=== PATIENT | female | born 1935 | race Caucasian/White ===

== ENCOUNTER → 2017-10-27 15:27 | Outpatient (CLI) | payer MEDICARE, SELFPAY ==
[2017-08-19 13:06] VITALS: BP 115/76; BMI 33.5
[2017-10-27 18:25] LABS: AST(SGOT) 18 U/L (15-37); Alanine Aminotransfer ALT/SGPT 21 U/L (13-56); Albumin, Serum 3.5 g/dL (3.2-5.0); Alkaline Phosphatase 67 U/L (45-117); Anion Gap 8 (5-15); BUN 15 mg/dL (7-18); BUN/Creat Ratio 14.3 RATIO (10-20); Calcium,Total 9.5 mg/dL (8.5-10.1); Chloride 99 mmol/L (98-107); Creatinine, Serum 1.05 mg/dL (0.55-1.02); EST Glomerular Filtration Rate 54 mL/min (>60); Est Glom Filt Rate - Afr Amer 65 mL/min (>60); Globulin 3.6 g/dL (2.2-4.2); Glucose 89 mg/dL (74-106); Potassium 3.8 mmol/L (3.5-5.1); Protein, Total 7.1 g/dL (6.4-8.2); Sodium Level 136 mmol/L (136-145); Thyroid Stim Hormone (TSH) 1.73 uIU/mL (0.358-3.74)
[2017-10-27 18:29] LABS: PTHIN 109.3 pg/mL (18.4-80.1)
== END ==
PROVIDERS: Family Provider Nurse Practitioner; PCP Nurse Practitioner; Visit Provider Internal Medicine Endocrinology, Diabetes & Metabolism
DX: C73 Malignant neoplasm of thyroid gland (principal); E21.0 Primary hyperparathyroidism; E31.22 Multiple endocrine neoplasia [MEN] type IIA
CPT/HCPCS: 36415; 80053; 82330; 83970; 84443

== ENCOUNTER → 2017-12-01 15:52 | Outpatient (CLI) | payer MEDICARE, SELFPAY ==
--- NOTE | 2017-12-01 16:14 | CT_ITS ---
STUDY: CT CHEST WITH CONTRAST REASON FOR EXAM: Female, 81 years old. Lymphoma and thyroid cancer. TECHNIQUE: Transaxial imaging was performed following intravenous administration of 75ML ml of Isovue 300 contrast material. Individualized dose optimization techniques were used for this CT. COMPARISON: Chest x-ray February 12, 2016. CT chest July 16, 2005. FINDINGS: The lungs are normal. There is no demonstrated pleural abnormality. Minimal linear fibrosis medial aspect of the left upper lobe which may be related to treatment therapy. The heart is not enlarged. Coronary artery calcifications. No pericardial effusion. Thyroid gland is absent compatible with surgical removal. There is a 0.9 cm focus of enhancement in the thyroid bed left lobe of the thyroid gland. 1.1 x 0.9 cm superior right paratracheal lymph node and more inferior right paratracheal lymph node measuring 1.7 x 1.5 cm, not significantly changed since the study of 2004. Normal hilar regions. Normal enhanced pulmonary arteries. Mild atherosclerotic calcification of the thoracic aorta. Degenerative changes of the thoracic spine. There is no demonstrated abnormality of the visualized upper abdomen. CT/Chest WITH Contrast IMPRESSION: No significant change in 2 mildly enlarged mediastinal lymph nodes. Small area of enhancement in the surgical bed left lobe of the thyroid gland could represent residual thyroid tissue or recurrence of tumor. Coronary artery calcifications. Electronically Signed: Ramón Lorenzana MD at 8:19 EDT , Service support ,
--- NOTE | 2017-12-01 16:14 | CT_ITS ---
STUDY: CT ABDOMEN AND PELVIS WITH CONTRAST REASON FOR EXAM: Female, 81 years old. Lymphoma. Weight loss. RADIATION DOSAGE (If Supplied By Facility): CTDIvol = ( 18.40 ) mGy, DLP = ( 1788.70 ) mGycm TECHNIQUE: Transaxial images were obtained from the dome of the diaphragm to the symphysis pubis without oral contrast. 75ML ml of Isovue 300 contrast was administered. Sagittal and coronal images were reconstructed. Individualized dose optimization techniques were used for this CT. COMPARISON: 07/07/2010. FINDINGS: There is significant streak artifact from improper positioning of patient arms. The visualized lung bases are unremarkable. The visualized portions of the heart are within normal limits. Liver is normal in shape and size. It appears mildly heterogeneous without focal mass. 2 or 3 scattered tiny cysts are seen.. There are surgical clips in the gallbladder fossa consistent with a prior cholecystectomy. Normal spleen. Normal pancreas. Normal bilateral adrenal glands. Normal right kidney. Normal left kidney. Evaluation of the GI tract is limited by absence of oral contrast. Cannot exclude stomach wall thickening. No dilated loops of bowel or evidence for obstruction. Cannot exclude segmental thickening of the enamorado of the small or large bowel. Cannot exclude enteritis or colitis. Moderate diffuse fecal retention. Diverticulosis without definite diverticulitis. Appendix has been removed Normal abdominal aorta. Normal inferior vena cava. There is borderline retroperitoneal lymphadenopathy with enlarged nodes no greater than 10mm in the short axis diameter. Normal urinary bladder. There is atrophy of the uterus. Small ventral hernia containing fat. There are diffuse degenerative changes of the visualized lumbar spine. CT/Abdomen/Pelvis WITH Contrast IMPRESSION: Limited by streak artifact. No definite acute abnormality. Electronically Signed: Jaden Rondon MD at 8:44 EDT , Service support ,
--- NOTE | 2017-12-01 16:15 | CT_ITS ---
STUDY: CT SOFT TISSUE NECK WITH CONTRAST REASON FOR EXAM: Female, 81 years old. Lymphoma and thyroid cancer. RADIATION DOSAGE (If Supplied By Facility): CTDIvol = ( 13.94 ) mGy, DLP = ( 377.71 ) mGycm TECHNIQUE: The patient was scanned in a multi-detector CT scanner. High resolution transaxial imaging was performed following intravenous administration of 75ml ml of Isovue 300 contrast material. Sagittal and coronal images were reconstructed. Individualized dose optimization techniques were used for this CT. COMPARISON: CT chest July 16, 2005. FINDINGS: Normal bilateral parotid glands. Normal bilateral pipe joints supervisor spaces. Normal bilateral parapharyngeal spaces. Normal bilateral carotid spaces. Normal bilateral sublingual and submandibular glands and spaces. Normal visualized nasopharynx. Normal retropharyngeal space. Normal perivertebral space. Normal visualized bilateral faucial tonsils. The visualized tongue, tongue base and oropharynx are normal. Mildly enlarged mediastinal lymph node superior right paratracheal measuring 1.2 x 0.9 cm. There is no demonstrated solid or cystic mass lesion. There is no abnormal contrast enhancement. Normal epiglottis, bilateral vallecula and hypopharynx. The pre-epiglottic and paraglottic adipose spaces are normal. Normal visualized bilateral piriform sinuses, aryepiglottic folds, vocal cords, and arytenoid-cricoid articulations. Normal subglottic trachea. The thyroid gland is not visualized suggestive of surgical removal. There is a 1.0 x 0.8 cm focus of enhancement in the surgical bed left lobe of the thyroid gland axial image 31 series 1002 and coronal image 32 series 601. Normal visualized pulmonary apices. Mild atherosclerotic calcification of the carotid arteries without hemodynamically significant stenosis. Normal visualized paranasal sinuses. Mild anterolisthesis C4 on C5. Disc space narrowing C4-5, C5-6 and C6-7. Neural foramina narrowing on the left at C4-5, C5-6 and C6-7. CT/Soft Tissue Neck WITH Contrast IMPRESSION: 1 cm focus of enhancement surgical bed left lobe of the thyroid gland, which could represent residual thyroid tissue or recurrence of tumor. Minimally enlarged mediastinal lymph node. Multilevel degenerative changes of the cervical spine with left-sided neural foramina narrowing of the lower cervical spine. Electronically Signed: Ramón Lorenzana MD at 8:07 EDT , Service support ,
[2017-12-01 17:20] LABS: CREATININE FINGERSTICK 0.9 mg/dL (0.55-1.02)
== END ==
PROVIDERS: Family Provider Nurse Practitioner; PCP Nurse Practitioner; Visit Provider Internal Medicine Hematology & Oncology
DX: C73 Malignant neoplasm of thyroid gland (principal); R63.4 Abnormal weight loss; C83.30 Diffuse large B-cell lymphoma, unspecified site
CPT/HCPCS: 70491; 71260; 74177; Q9967

== ENCOUNTER → 2017-12-25 08:29 | Outpatient (CLI) | payer MEDICARE, SELFPAY ==
--- NOTE | 2017-12-25 08:31 | US_ITS ---
STUDY: THYROID ULTRASOUND REASON FOR EXAM: Female, 82 years old. Follow-up nodule on CT TECHNIQUE: Ultrasound evaluation of the thyroid was performed with real-time and static josue-scale imaging. COMPARISON: CT neck dated December 01, 2017 FINDINGS: RIGHT LOBE: Status post right thyroidectomy LEFT LOBE: The left lobe of the thyroid gland measures 3.8 x 1.1 x 1.1 cm. There is a heterogeneous echotexture. At least 4 nodules are identified, solid and well-defined. Largest in the midpole measuring 6 x 5 x 6 mm with dystrophic calcification. ISTHMUS: The isthmus measures 2 mm. The regional lymph nodes are normal. US/Thyroid IMPRESSION: Status post right thyroidectomy. Multiple small left thyroid nodules. Electronically Signed: Juliano Grijalva DO at 8:40 EDT Tel , Service support ,
== END ==
PROVIDERS: Family Provider Nurse Practitioner; PCP Nurse Practitioner; Visit Provider Internal Medicine Hematology & Oncology
DX: C73 Malignant neoplasm of thyroid gland (principal)
CPT/HCPCS: 76536

== ENCOUNTER → 2018-06-01 10:18 | Outpatient (CLI) | payer MEDICARE, SELFPAY ==
[2018-06-01 13:00] LABS: Vitamin D,25 Hydroxy 15.6 ng/mL (29.95-100.01)
[2018-06-01 13:01] LABS: PTHIN 119.1 pg/mL (18.4-80.1)
[2018-06-01 13:26] LABS: AST(SGOT) 20 U/L (15-37); Alanine Aminotransfer ALT/SGPT 18 U/L (13-56); Albumin, Serum 3.5 g/dL (3.2-5.0); Alkaline Phosphatase 74 U/L (45-117); Anion Gap 10 (5-15); BUN 14 mg/dL (7-18); BUN/Creat Ratio 12.3 RATIO (10-20); Calcium,Total 9.4 mg/dL (8.5-10.1); Chloride 101 mmol/L (98-107); Creatinine, Serum 1.14 mg/dL (0.55-1.02); EST Glomerular Filtration Rate 49 mL/min (>60); Est Glom Filt Rate - Afr Amer 59 mL/min (>60); Globulin 3.6 g/dL (2.2-4.2); Glucose 87 mg/dL (74-106); Potassium 3.8 mmol/L (3.5-5.1); Protein, Total 7.1 g/dL (6.4-8.2); Sodium Level 137 mmol/L (136-145); T4 Free Direct 1.17 ng/dL (0.76-1.46); Thyroid Stim Hormone (TSH) 0.73 uIU/mL (0.358-3.74)
== END ==
PROVIDERS: Family Provider Nurse Practitioner; PCP Nurse Practitioner; Visit Provider Internal Medicine Endocrinology, Diabetes & Metabolism
DX: C73 Malignant neoplasm of thyroid gland (principal); E21.0 Primary hyperparathyroidism; E89.0 Postprocedural hypothyroidism; E55.9 Vitamin D deficiency, unspecified; E31.22 Multiple endocrine neoplasia [MEN] type IIA
CPT/HCPCS: 36415; 80053; 82306; 82330; 83970; 84439; 84443

== ENCOUNTER 2018-07-28 08:12 | Emergency (ER) | payer MEDICARE, SELFPAY ==
[2018-07-28 08:14] VITALS: BP 129/90; PULSE 92; RESP 16; TEMP 36.9; O2SAT 97; BMI 34.3
--- NOTE | 2018-07-28 08:44 | ED.VISSUMM ---
- ER Visit Summary Date of Service: 07/28/18 Chief Complaint: Fell History of Present Illness: The patient is a 82 F who fell yesterday evening in the shower. She slipped. She did not lose consciousness. She is denying head or neck pain. Denies any blood thinner use. She complains of pain to her mid and lower back as well as her hips bilaterally. Denies any HEENT symptoms or trauma. Denies neck pain. Denies chest pain, shortness of breath. Denies abdominal pain or GI symptoms. Denies weakness or numbness. Physical Examination: Afebrile and vital signs unremarkable. Patient is alert and oriented. No acute distress. Head and neck are atraumatic. Neck is nontender. Heart regular. Lungs clear. Abdomen soft. Back is tender to palpation diffusely in the thoracic and lumbar spines. Inspection is normal. Hips tender to palpation over her greater trochanters. Negative logroll. Good range of motion. Neurovascular intact distally. Equal strength. Arms atraumatic. Cranial nerves grossly intact. Test Results: X-rays of the thoracic and lumbar spines are pending. X-rays of the bilateral hips and pelvis are pending. Emergency Department Course and Treatment: Patient treated with [facility] while awaiting results. X-rays were all unremarkable. Degenerative changes only. Patient was able to ambulate without difficulty. She has pain medication at home and will be discharged. Treatment Plan: As above Disposition: Discharged Impression: 1. Lumbar back pain This note was generated with [employer] dictation software. It may contain incorrect words, spelling, and punctuation that were not noted in review of the chart prior to signing ED Disposition - Plan for ED Patient: Chief Complaint: Fall Referrals: Jenna Najera, [facility]-C [Primary Care Provider] -
--- NOTE | 2018-07-28 09:09 | RAD_ITS ---
STUDY: X-RAY - PELVIS AND BILATERAL HIPS REASON FOR EXAM: Female, 82 years old. Pain following a fall. TECHNIQUE: Radiological exam, hip, bilateral, with pelvis when performed; minimum of 5 views COMPARISON: None. FINDINGS: There is a non-specific bowel gas pattern. Normal visualized soft tissue structures. Normal bilateral iliac wings, sacroiliac joints and visualized sacrum. Normal bilateral superior and inferior pubic rami. There are degenerative changes of the pubic symphysis with articular narrowing and sclerosis. Normal bilateral ischial tuberosities. Normal visualized right femoral head. Normal right acetabulum. Normal right hip joint. Normal visualized left femoral head. Normal left acetabulum. Normal left hip joint. RAD/Hips B/L min 2 views w/ Pelvis IMPRESSION: Normal x-ray examination of the pelvis and bilateral hips. Electronically Signed: Scott Mims MD at 9:58 EST Tel [phone], Service support ,
--- NOTE | 2018-07-28 09:19 | RAD_ITS ---
STUDY: X-RAY - LUMBAR SPINE REASON FOR EXAM: Female, 82 years old. Low back pain following a fall. TECHNIQUE: 3 view(s) of the lumbar spine were obtained. COMPARISON: None FINDINGS: Normal lumbar lordosis. There is a mild dextroscoliosis of the lumbar spine. There is a grade 1 anterior listhesis of L5 on S1 without spondylolysis. There is multilevel endplate spondylosis of the lumbar vertebrae. There is multi-level degenerative disc disease with multi-level disc space narrowing. There is atherosclerotic calcification of the abdominal aorta without a demonstrated aneurysm. RAD/Lumbar Spine 2 or 3 Views IMPRESSION: Degenerative changes of the spine, as detailed above. Mild dextroscoliosis. Electronically Signed: Scott Mims MD at 10:00 EST Tel [phone], Service support ,
--- NOTE | 2018-07-28 09:29 | RAD_ITS ---
STUDY: X-RAY - THORACIC SPINE REASON FOR EXAM: Female, 82 years old. Pain following a fall. TECHNIQUE: 3 view(s) of the thoracic spine were obtained. COMPARISON: None. FINDINGS: There is an increase in the normal thoracic kyphosis. Mild levoscoliosis. There is demineralization of the thoracic spine with endplate spondylosis. There is multilevel disc space narrowing of the thoracic spine. Atherosclerotic calcification of the aortic arch. RAD/Thoracic Spine 3 Views IMPRESSION: Mild levoscoliosis and increased kyphosis. Multilevel degenerative changes. Electronically Signed: Scott Mims MD at 9:59 EST Tel [phone], Service support ,
[2018-07-28] MEDS: HYDROcodone Bitartrate/Apap 5/325 Tablet PO (09:52)
[2018-07-28 10:16] VITALS: O2SAT 98
--- NOTE | 2018-07-28 11:25 | ED.DEP ---
ED Disposition - Plan for ED Patient: Chief Complaint: Fall Instructions: ED Mechanical Fall Referrals: Jenna Najera NP-C [Primary Care Provider] -
[2018-07-28 11:31] VITALS: BP 137/88; PULSE 71; RESP 16; O2SAT 96
== END 2018-07-28 11:32 | disposition home or self-care (01) ==
LOC: ED 08:50
PROVIDERS: Emergency Provider Emergency Medicine; Family Provider Nurse Practitioner; PCP Nurse Practitioner
DX: M54.5 Low back pain (principal); Z85.850 Personal history of malignant neoplasm of thyroid
CPT/HCPCS: 72072; 72100; 73521; 99283

== ENCOUNTER → 2019-03-04 | Outpatient (CLI) | payer MEDICARE, SELFPAY ==
[2019-03-04 12:58] LABS: Anion Gap 3 (5-15); BUN 13 mg/dL (7-18); BUN/Creat Ratio 13.1 RATIO (10-20); Calcium,Total 9.6 mg/dL (8.5-10.1); Chloride 107 mmol/L (98-107); Creatinine, Serum 0.99 mg/dL (0.55-1.02); EST Glomerular Filtration Rate 57 mL/min (>60); Est Glom Filt Rate - Afr Amer 69 mL/min (>60); Glucose 78 mg/dL (74-106); Potassium 4.1 mmol/L (3.5-5.1); Sodium Level 137 mmol/L (136-145); T4 Free Direct 1.04 ng/dL (0.76-1.46); Thyroid Stim Hormone (TSH) 1.39 uIU/mL (0.358-3.74)
[2019-03-04 15:03] LABS: PTHIN 184.2 pg/mL (18.4-80.1)
== END | disposition home or self-care (01) ==
LOC: MTLAB 09:33
PROVIDERS: Family Provider Nurse Practitioner; PCP Nurse Practitioner; Referring Provider Internal Medicine Endocrinology, Diabetes & Metabolism; Visit Provider Internal Medicine Endocrinology, Diabetes & Metabolism
DX: E89.0 Postprocedural hypothyroidism (principal); E21.0 Primary hyperparathyroidism
CPT/HCPCS: 36415; 80048; 82330; 83970; 84439; 84443

== ENCOUNTER → 2019-03-18 | Outpatient (CLI) | payer MEDICARE, SELFPAY ==
--- NOTE | 2019-03-18 13:04 | US_ITS ---
HISTORY: THYROID CA EXAMINATION: US Thyroid (eg thyroid, parathyroid, parotid) TECHNIQUE: Baker scale and color doppler imaging was performed of the thyroid gland. COMPARISON: Previous thyroid ultrasound from December 25, 2017.. CT scan of the chest that images through the thyroid gland is from December 01, 2017. Additional thyroid ultrasound dated June 24, 2016 FINDINGS: The right lobe of the thyroid gland has been resected. No masses or adenopathy within the right neck is perceived. LEFT THYROID LOBE: Measures 1.2 x 4.6 x 1.4 cm. This is measured larger than the most recent ultrasound, where it measured 1.1 x 3.8 x 1.1 cm. Direct comparison of the images where the measurements were made are fairly similar except for the length. The craniocaudal dimension of the left lobe of the thyroid gland is more similar than these 2 different measurements suggest. The left lobe of the thyroid gland remains heterogeneous. There remain several nodules within the left lobe of the thyroid gland. Color Doppler imaging of the left lobe of thyroid gland demonstrates adequate if not hyper vascularity. Within the dorsal aspect of the midportion of the left lobe of the thyroid gland there is an echogenic non-shadowing nodule with well-defined margins measuring 5 x 5 mm. Directly inferior to it, abutting it, is a second echogenic non-shadowing well-defined nodule measuring 4 x 5 mm. Both of these nodules are homogeneous in echotexture. The more cranial nodule does not demonstrate flow on color Doppler imaging. There does appear to be some flow within the more inferior of these 2 adjacent nodules. These nodules are very similar in appearance compared to the previous study in terms of size, position, margin definition, echogenicity, and vascularity to the more inferior lesion. Within the anterior aspect of the midportion of the left lobe of the thyroid gland, directly adjacent to the left common carotid artery, there is a well-defined anechoic cystic structure. On the sagittal series, I measure it to be 4 x 3 mm. Although this is minimally larger than the previous study, some of this could be cursor placement and the slice on which I measured it compared to the previous study. It remains consistent with a simple cyst. It is the same in appearance as the previous study. The complex lesion measured is a fourth lesion within the left lobe of the thyroid gland, at the end of the previous study, was not perceived by the automotive welder. I it to be on images 19 and 20 of 38. The continues to be heterogeneous with some shadowing with tiny foci of echogenic material. The rim of hypo-echoic tissue at its margin better seen on the previous study is not well-defined on the current study. On today's study, on those sagittal images, I measure it at 7 x 5 mm. This is also similar to the previous study accounting for differences in slices and cursor placement. ISTHMUS: Is thin and similar to the previous study. No thyroid nodules are present. US/Thyroid IMPRESSION: 4 lesions within the left lobe of the thyroid gland. One of these is cystic benign and unchanged. 2 are homogeneous with increased echotexture and well-defined margins and unchanged. The third is heterogeneous possibly with some calcifications and with a rind of hypoechoic tissue at some of its margins. This fourth lesion is the most suspicious lesion. It does not demonstrate a significant increase in size since the previous study of December 25, 2017, 14 months earlier. Absence of growth suggests, but is not definitive for absence of neoplasia. Comparison to the June 24, 2016 study demonstrates the 2 well-defined homogeneous echogenic lesions are very similar. The cyst may have been present at that time but is slightly different in appearance. The lesion in my report that is the fourth lesion is smaller than the June 24, 2016 study.. at 2527 Reported and signed by: Vicente Crews MD Electronically Signed: Vicente Crews MD at 21:57 EDT Tel , Service support ,
== END | disposition home or self-care (01) ==
LOC: US 13:00
PROVIDERS: Family Provider Nurse Practitioner; PCP Nurse Practitioner; Referring Provider Internal Medicine Endocrinology, Diabetes & Metabolism; Visit Provider Internal Medicine Endocrinology, Diabetes & Metabolism
DX: C73 Malignant neoplasm of thyroid gland (principal)
CPT/HCPCS: 76536

== ENCOUNTER 2019-06-28 17:15 | Emergency (ER) | payer MEDICARE, SELFPAY ==
[2019-06-02 13:30] VITALS: BMI 30.4
[2019-06-28 17:19] VITALS: BP 161/93; PULSE 98; RESP 16; TEMP 36.7; O2SAT 98; BMI 32.2
--- NOTE | 2019-06-28 17:31 | CT_ITS ---
STUDY: CT BRAIN WITHOUT CONTRAST REASON FOR EXAM: Female, 83 years old. Trauma RADIATION DOSAGE (If Supplied By Facility): CTDIvol = ( ) mGy, DLP = ( 829.85 ) mGycm TECHNIQUE: Transaxial CT imaging of the brain was performed without administration of intravenous contrast material. Individualized dose optimization techniques were used for this CT. COMPARISON: No relevant priors. FINDINGS: There is soft tissue injury of the posterior right parietal scalp. Normal calvarium. There is mild cerebral atrophy with widening of the extra-axial spaces and ventricular dilatation. There are areas of decreased attenuation within the white matter tracts of the supratentorial brain, consistent with microvascular disease changes. Normal basal ganglia and thalami. Normal brainstem. Normal cerebellum. There is no intracranial hemorrhage. There are no findings of an acute ischemic infarction. Normal visualized paranasal sinuses. CT/Brain/Head without Contrast IMPRESSION: Chronic involutional changes of the brain. Electronically Signed: Kavon Tom MD at 18:16 EDT , Service support ,
[2019-06-28] MEDS: Diphth,Pertuss(Acell),Tet Vac 0.5 ML Vial IM (18:04)
--- NOTE | 2019-06-28 18:58 | ED.VISSUMM ---
- ER Visit Summary Date of Service: 06/28/19 Chief Complaint: [Fall with head injury and laceration scalp] History of Present Illness: The patient is a 83 F [presents to the emergency department after sustaining a fall today. Patient states that she was up on a step stool when she missed a step and fell backward striking her head on a bed post. No loss of consciousness. She denies any neck pain. She is been ambulatory since. She is not on any blood thinners. Patient does have a history of GERD, hypertension, high cholesterol, chronic kidney disease, non-Hodgkin's lymphoma. She is unsure of her last tetanus shot. Denies any neck pain or paresthesias in the extremities. She denies any chest pain or abdominal pain.] Physical Examination: [HEENT-PERRLA, EOMI. Cranial nerves II through XII grossly intact. TMs clear. Mucous membranes moist. No adenopathy. Patient has a complex laceration to the right posterior occiput measuring approximately 5 cm in total length. No bony step-offs noted. C-spine tenderness to palpation. She has normal active range of motion is painless. Cardiovascular-regular rate and rhythm without murmur or ectopy Lungs-clear to auscultation, chest wall stable without crepitus or subcu emphysema Abdomen-normoactive bowel sounds, soft, nontender, no rebound or rigidity, no peritoneal signs. Extremities-intact ?4, normal range of motion, normal pulses, atraumatic] Test Results: [T scan of the brain without contrast showed chronic involutional changes] Emergency Department Course and Treatment: [Recent repair-wound sterilely draped and prepped. Wound cleansed with Shur-Clens and irrigated with copious saline. Wound anesthetized locally with 1% lidocaine with epinephrine total of 6 cc. Using 4-0 nylon a total of 8 single interrupted sutures placed with good wound edge approximation. Patient tolerated procedure well.] Treatment Plan: [Up with primary care physician in 10 days for suture removal.] Disposition: [Discharged home in stable condition.] Impression: [Chemical fall Closed head injury Scalp laceration 5 cm-simple repair] This note was generated with [employer] software. It may contain incorrect words, spelling, and punctuation that were not noted in review of the chart prior to signing ED Disposition - Plan for ED Patient: Referrals: Jenna Najera, APPLICATIONS ENGINEER MANUFACTURING-C [Primary Care Provider] -
--- NOTE | 2019-06-28 19:00 | DCINST.ED_ITS ---
ED Disposition - Plan for ED Patient: Instructions: FALL, Mechanical, HEAD INJURY, No Wake-Up (Adult), LACERATION, Scalp Referrals: Jenna Najera, ANTISQUEAK WORKER-C [Primary Care Provider] - 10 Day for suture removal
--- NOTE | 2019-06-28 19:00 | ED.DEP ---
ED Disposition - Plan for ED Patient: Instructions: FALL, Mechanical, HEAD INJURY, No Wake-Up (Adult), LACERATION, Scalp Referrals: Jenna Najera, WILDLIFE BIOSTATION RESEARCH ECOLOGIST-C [Primary Care Provider] - 10 Day for suture removal
== END 2019-06-28 19:35 | disposition home or self-care (01) ==
PROVIDERS: Emergency Provider Emergency Medicine; Family Provider Nurse Practitioner; PCP Nurse Practitioner
DX: S01.01XA Laceration without foreign body of scalp, initial encounter (principal); Z85.72 Personal history of non-Hodgkin lymphomas; E78.00 Pure hypercholesterolemia, unspecified; I12.9 Hypertensive chronic kidney disease with stage 1 through stage 4 chronic kidney disease, or unspecified chronic kidney disease; N18.9 Chronic kidney disease, unspecified; K21.9 Gastro-esophageal reflux disease without esophagitis; Z79.899 Other long term (current) drug therapy; W11.XXXA Fall on and from ladder, initial encounter; Y93.89 Activity, other specified; Y92.092 Bedroom in other non-institutional residence as the place of occurrence of the external cause; Y99.8 Other external cause status
CPT/HCPCS: 12002; 70450; 90715; 99282

== ENCOUNTER → 2019-09-30 11:00 | Outpatient (CLI) | payer MEDICARE, SELFPAY ==
[2019-09-30 12:36] LABS: ALB/GLOB Ratio 0.9 RATIO (0.9-2.4); AST(SGOT) 14 U/L (15-37); Alanine Aminotransfer ALT/SGPT 14 U/L (13-56); Albumin, Serum 3.3 g/dL (3.2-5.0); Alkaline Phosphatase 66 U/L (45-117); Anion Gap 5 (5-15); BUN 13 mg/dL (7-18); BUN/Creat Ratio 11.6 RATIO (10-20); Calcium,Total 9.4 mg/dL (8.5-10.1); Chloride 108 mmol/L (98-107); Creatinine, Serum 1.12 mg/dL (0.55-1.02); EST Glomerular Filtration Rate 49 mL/min (>60); Est Glom Filt Rate - Afr Amer 60 mL/min (>60); Globulin 3.5 g/dL (2.2-4.2); Glucose 92 mg/dL (74-106); Potassium 3.8 mmol/L (3.5-5.1); Protein, Total 6.8 g/dL (6.4-8.2); Sodium Level 140 mmol/L (136-145)
[2019-09-30 12:43] LABS: Vitamin D,25 Hydroxy 22.8 ng/mL (29.95-100.01)
[2019-10-03 14:54] LABS: Thyroglobulin Antibody < 1.0 IU/mL (0.0-0.9); Thyroid Peroxidase AB 7 IU/mL (0-34)
== END ==
PROVIDERS: Family Provider Nurse Practitioner; PCP Nurse Practitioner; Referring Provider Internal Medicine Endocrinology, Diabetes & Metabolism; Visit Provider Internal Medicine Endocrinology, Diabetes & Metabolism
DX: E21.0 Primary hyperparathyroidism (principal); C73 Malignant neoplasm of thyroid gland
CPT/HCPCS: 36415; 80053; 82306; 86376; 86800

== ENCOUNTER → 2019-10-08 11:03 | Outpatient (CLI) | payer MEDICARE, SELFPAY ==
[2019-10-08 14:01] LABS: T4 Total, Thyroxin 10.3 ug/dL (4.8-13.9); Thyroid Stim Hormone (TSH) 3.55 uIU/mL (0.358-3.74)
== END ==
PROVIDERS: PCP Nurse Practitioner; Referring Provider Internal Medicine Endocrinology, Diabetes & Metabolism; Visit Provider Internal Medicine Endocrinology, Diabetes & Metabolism
DX: C73 Malignant neoplasm of thyroid gland (principal)
CPT/HCPCS: 36415; 84436; 84443

== ENCOUNTER → 2020-05-23 08:52 | Outpatient (CLI) | payer MEDICARE, MEDICAID, SELFPAY ==
[2020-01-24 13:09] VITALS: BMI 29.8
[2020-05-23 10:53] LABS: ALB/GLOB Ratio 0.9 RATIO (0.9-2.4); AST(SGOT) 11 U/L (15-37); Alanine Aminotransfer ALT/SGPT 15 U/L (13-56); Albumin, Serum 3.2 g/dL (3.2-5.0); Alkaline Phosphatase 64 U/L (45-117); Anion Gap 3 (5-15); BUN 17 mg/dL (7-18); BUN/Creat Ratio 16.3 RATIO (10-20); Calcium,Total 9.1 mg/dL (8.5-10.1); Chloride 107 mmol/L (98-107); Creatinine, Serum 1.04 mg/dL (0.55-1.02); EST Glomerular Filtration Rate 54 mL/min (>60); Est Glom Filt Rate - Afr Amer 65 mL/min (>60); Globulin 3.6 g/dL (2.2-4.2); Glucose 93 mg/dL (74-106); Phosphorus 3.2 mg/dL (2.5-4.9); Potassium 4.6 mmol/L (3.5-5.1); Protein, Total 6.8 g/dL (6.4-8.2); Sodium Level 140 mmol/L (136-145); T4 Free Direct 0.94 ng/dL (0.76-1.46)
[2020-05-23 11:41] LABS: PTHIN 140.3 pg/mL (18.4-80.1)
== END ==
PROVIDERS: PCP Nurse Practitioner; Referring Provider Internal Medicine Endocrinology, Diabetes & Metabolism; Visit Provider Internal Medicine Endocrinology, Diabetes & Metabolism
DX: E21.0 Primary hyperparathyroidism (principal); C73 Malignant neoplasm of thyroid gland
CPT/HCPCS: 36415; 80053; 82330; 83970; 84100; 84439; 84443

== ENCOUNTER 2020-07-28 11:58 | Emergency (ER) | payer MEDICARE, MEDICAID, SELFPAY ==
[2020-01-24 13:09] VITALS: BMI 29.8
[2020-07-28 11:59] VITALS: BP 151/77; PULSE 101; RESP 20; TEMP 36.6; O2SAT 99; BMI 31.5
[2020-07-28 14:17] VITALS: O2SAT 98
[2020-07-28 14:26] VITALS: PULSE 104; RESP 18; O2SAT 98
--- NOTE | 2020-07-28 14:33 | ED.VIS.GEN ---
History of Present Illness Chief Complaint: Shortness of Breath Informant: Patient Narrative: 84-year-old female presenting with shortness of breath and a very mild cough. She states she was exposed to Covid?19 10 days ago. 7 days ago she started to have symptoms. She says she has not checked her temperature but thinks she might of had a fever at home. She not having chest pain. No history of DVT/PE. Dates that she has had thyroid cancer in the past as well as lymphoma but those have been in remission. Otherwise she does not have very many medical problems. She states she has 2 sick family members at home with similar exposure and symptoms however they are doing well. Past Medical History - Allergies and Home Meds Allergies/Adverse Reactions: Allergies No Known Allergies Allergy (Verified 07/28/20 11:58) Primary Care Physician: Jenna Najera CHECKERING MACHINE ADJUSTER, CHECKERING MACHINE ADJUSTER-C [Primary Care Provider] - Past Medical History: - - Lymphoma, thyroid cancer, hyperlipidemia, hypertension Surgical History: noncontributory Lives: Spouse/ Significant Other, With Family Smoking Status: Never smoker Alcohol: None Drugs: None Review of Systems General: Reports: Fever - Objective, Malaise Eyes: Denies: Visual changes - bilaterally, Diplopia ENT: Reports: Sore throat, - - Hoarse voice. Denies: Rhinorrhea Respiratory: Reports: Dyspnea, Cough Gastrointestinal: Denies: Abdominal pain, Nausea, Vomiting Musculoskeletal: Reports: Myalgias. Denies: Arthralgias, Neck pain Skin: Denies: Rash, Abscess Neurological: Denies: Headache, Parasthesia, Numbness Physical Exam Vital Signs/Narrative: Vital Signs Temp Pulse Resp BP Pulse Ox 07/28/20 14:26 104 H 18 98 07/28/20 11:59 97.8 F 101 H 20 H 151/77 H 99 General: Well nourished, No Acute Distress Head: Normocephalic, Atraumatic Eyes: Perrl, EOMI ENT: Moist mucous membranes, No rhinorrhea Cardiovascular: Regular rate, Regular rhythm Respiratory: No distress, CTA bilaterally. Negative for: Wheezing Abdomen: Soft, Nontender Extremities: Nontender, No edema Skin: Normal color, No rash. Negative for: Cyanosis, Diaphoresis Neurological: Alert, Oriented x3 Psychological: Normal affect, Normal Mood Diagnostic/Tx/Re-eval - Medical Decision Making 84-year-old female with known exposure to Covid?19 presents for evaluation of a very mild cough and some shortness of breath. Her vital signs are stable. She is afebrile here. She is nontoxic-appearing. Heart and lung exam are normal. I personally assisted by the nurse ambulated her in place for 30 seconds and she does not desaturate. We discussed doing blood work and imaging however I counseled her even that she is not requiring any oxygen, having chest pain or severe symptoms that she likely would be discharged home anyway. Through shared decision making we decided that we would not do lab work and imaging. She is offered a Covid swab but declines this to stating that she knows she was exposed to it and this is likely the cause. I discussed at length with her return precautions and she acknowledges understanding. She will go home and quarantine. Impression: 1. Viral syndrome ED Disposition - Plan for ED Patient: Disposition: Home or Assisted Living Instructions: ED Upper Resp Infec No Abx Tx Referrals: Jenna Najera NP, CHECKERING MACHINE ADJUSTER-C [Primary Care Provider] -
[2020-07-28 14:49] VITALS: BP 150/77; PULSE 72; RESP 16; O2SAT 99
== END 2020-07-28 14:50 | disposition home or self-care (01) ==
PROVIDERS: Emergency Provider Student in an Organized Health Care Education/Training Program; PCP Nurse Practitioner
DX: B34.9 Viral infection, unspecified (principal)
CPT/HCPCS: 94760; 99282; A4216

== ENCOUNTER → 2020-08-22 11:11 | Outpatient (CLI) | payer MEDICARE, MEDICAID, SELFPAY ==
[2020-01-24 13:09] VITALS: BMI 29.8
[2020-07-28 11:59] VITALS: BMI 31.5
--- NOTE | 2020-08-22 11:13 | US_ITS ---
STUDY: THYROID ULTRASOUND REASON FOR EXAM: Female, 84 years old. HX MEDULLARY THYROID CANCER -- RIGHT THYROIDECTOMY -- LEFT NODULES TECHNIQUE: Ultrasound evaluation of the thyroid was performed with real-time and static josue-scale imaging. COMPARISON: Comparison is made with prior examination dated 03/18/2019. FINDINGS: RIGHT LOBE: The patient is status post resection of the right lobe of the thyroid. LEFT LOBE: The left lobe of the thyroid gland measures 3.7 cm x 1.3 cm x 1.3 cm. There is a heterogeneous echotexture. Stable appearance of the 3 solid nodules in the left lobe of the thyroid. There is a 4 mm x 3 mm x 4 mm echogenic nodule in the posterior aspect. A similar-appearing nodule is also seen measuring 4 mm x 2 mm x 4 mm. Stable 7 mm x 6 mm x 9 mm solid nodule with focal calcifications. ISTHMUS: The isthmus measures 3 mm. The regional lymph nodes are normal. US/Thyroid IMPRESSION: Status post right thyroid resection. Stable examination of the left lobe of the thyroid. Electronically Signed: Scott Mims, at 15:07 EST , Service support ,
[2020-08-22 13:06] LABS: T4 Free Direct 1.72 ng/dL (0.76-1.46); Thyroid Stim Hormone (TSH) 0.03 uIU/mL (0.358-3.74)
== END ==
PROVIDERS: PCP Nurse Practitioner; Referring Provider Internal Medicine Endocrinology, Diabetes & Metabolism; Visit Provider Internal Medicine Endocrinology, Diabetes & Metabolism
DX: E31.22 Multiple endocrine neoplasia [MEN] type IIA (principal); E21.3 Hyperparathyroidism, unspecified; N18.30 Chronic kidney disease, stage 3 unspecified; E03.9 Hypothyroidism, unspecified; C73 Malignant neoplasm of thyroid gland
CPT/HCPCS: 36415; 76536; 84439; 84443

== ENCOUNTER 2020-09-06 19:24 | Observation (INO) | payer MEDICARE, MEDICAID, SELFPAY ==
[2020-09-06] VITALS (7 sets, daily range): BP systolic 137–157; BP diastolic 71–99; PULSE 78–108; RESP 16–22; TEMP 36.8–37.1; O2SAT 94–97; BMI 30.3; BMI 30.9; BMI 31.0
--- NOTE | 2020-09-06 19:43 | EKG12_ITS ---
Test Reason : SOB Blood Pressure : / mmHG Vent. Rate : 103 BPM Atrial Rate : 103 BPM P-R Int : 152 ms QRS Dur : 072 ms QT Int : 330 ms P-R-T Axes : 047 -19 054 degrees QTc Int : 432 ms Sinus tachycardia Otherwise normal ECG Confirmed by KATHY CRAWFORD, IKE ([id number]), publication editor ROSARIO ALEJANDRA ([id number]) on 09/13/2020 10:20:25 AM Referred By: SWAPNIL Confirmed By:CHELSEA CHAVEZ MD
--- NOTE | 2020-09-06 19:44 | ED.DCSUM_ITS ---
- ER Visit Summary Date of Service: 09/06/20 Chief Complaint: Chest pain History of Present Illness: The patient is a 84 F who presents with chest pain that began yesterday evening. Patient states the pain is over the lower sternal area and epigastric area. Patient describes it as dull and aching. Patient states the pain has been constant. Patient states the pain is worse with eating. Patient states nothing seems to help with it. Patient admits to some nausea but denies any vomiting. Patient also admits to shortness of breath and cough. Patient admits to subjective fevers and lightheadedness. Patient also admits to some reflux symptoms. Patient denies any sick contacts. Patient denies any loss of taste or smell. Patient states she had similar symptoms 2 weeks ago and was diagnosed with bronchitis. Physical Examination: Vital signs are stable except for mild tachycardia of 108 and a mild tachypnea of 22. Patient is afebrile. Patient is in no acute distress. Oral mucosa is pink and moist. Neck is supple. Trachea is midline. There is no JVD noted. Heart was regular and tachycardic. Lungs are clear but diminished bilaterally. Abdomen is soft. Bowel sounds are normal. There is no tenderness. There is no rebound or guarding noted. Skin is warm dry. Cranial nerves II through XII are intact. There are no focal motor or sensory deficits noted. Extremities are intact. There is no calf tenderness but there is trace edema bilaterally. Test Results: EKG was obtained. On my interpretation, there is a sinus tachycardia with a rate of 103. There are no acute ST or T wave changes noted. This was unchanged compared to previous EKG dated 08/07/2015. Portable 1 view chest x-ray was obtained. On my interpretation, lung graham are clear. There is normal cardiac silhouette. Bony thorax is normal. There is no acute process noted. Radiologist also interpreted the x-ray and agrees. CBC shows a mild anemia with a hemoglobin of 11.5 and hematocrit of 34.7. Basic metabolic profile showed a slightly elevated glucose of 151 and a creatinine of 1.15. This was consistent with prior results. Troponin was normal. COVID-19 rapid antigen test was negative. Emergency Department Course and Treatment: Patient was given aspirin here. Patient was feeling better on reevaluation. Patient has a HEART score of 4. Patient's last stress test was from 2015. Because of this, I feel the patient would benefit from repeat stress test and admission for observation. Case was discussed with the hospitalist. He will admit the patient for observation to PCU. Patient and family understood and were agreeable with the plan. All questions were answered. Disposition: Admit to hospital Impression: 1. Chest pain This note was generated with Walk-in dictation software. It may contain incorrect words, spelling, and punctuation that were not noted in review of the chart prior to signing ED Disposition - Plan for ED Patient: Disposition: Acute Care Hospital [facility] Diagnosis: Chest pain Referrals: Jenna Najera ONLINE TRADER, ONLINE TRADER-C [Primary Care Provider] -
--- NOTE | 2020-09-06 19:55 | RAD_ITS ---
STUDY: X-RAY CHEST REASON FOR EXAM: Female, 84 years old. complaining of chest and epigastric pain that started last night. patient with cough and shortness of breath. was seen 2 weeks ago for cough, diagnosed with bronchitis. TECHNIQUE: Single AP portable view of the chest. COMPARISON: 05/14/2016. FINDINGS: The lungs are clear and expanded. There is no demonstrated pleural abnormality. Normal size heart. Normal mediastinum and juan daniel. Normal visualized pulmonary arteries. There is atherosclerotic tortuosity of the aortic arch and descending thoracic aorta. Normal visualized thoracic spine. Normal visualized ribs, clavicles, and shoulders. There is no demonstrated abnormality of the visualized soft tissue structures of the upper abdomen. RAD/Chest 1 View (Portable) IMPRESSION: No definite acute or significant abnormality seen. Electronically Signed: Jaden Rondon MD at 20:46 EST , Service support ,
[2020-09-06 19:57] LABS: Absolute Lymphocyte Count 1.39 X10^3/uL (0.83-4.51); Absolute Neutrophil Count 4.9 X10^3/uL (2.0-7.7); Basophil# 0.03 X10^3/uL; Basophil% 0.4 % (0-1); Eosinophil# 0.07 X10^3/uL; Hematocrit 34.7 % (37-47); Hemoglobin 11.5 g/dL (12.0-15.0); Lymphocyte # 1.39 X10^3/ul (4.0); Lymphocyte % 20.6 % (19-41); Mean Corp Hgb Conc 33.1 g/dL (32-36); Mean Corpuscular Hgb 30.1 pg (27.0-32.0); Mean Corpuscular Volume 90.8 fL (81-99); Mean Platelet Vol. 9.6 fl (6.2-12.0); Monocyte% 5.9 % (0-10); NRBC Flagged by Analyzer 0 % (0-5); Neutrophil # 4.85 X10^3/uL (2.7-7.7); Platelet Count 235 K/mm3 (150-450); RBC Distribution Width CV 12.5 % (11.6-14.6); RBC Distribution Width SD 41.4 fl (35.1-43.9); Red Blood Count 3.82 M/mm3 (4.2-5.4); White Blood Count 6.8 K/mm3 (4.4-11.0)
[2020-09-06 20:08] LABS: Anion Gap 6 (5-15); BUN 12 mg/dL (7-18); BUN/Creat Ratio 10.4 RATIO (10-20); Calcium,Total 9.4 mg/dL (8.5-10.1); Chloride 105 mmol/L (98-107); Creatinine, Serum 1.15 mg/dL (0.55-1.02); EST Glomerular Filtration Rate 48 mL/min (>60); Est Glom Filt Rate - Afr Amer 58 mL/min (>60); Glucose 151 mg/dL (74-106); Potassium 3.6 mmol/L (3.5-5.1); Sodium Level 138 mmol/L (136-145)
[2020-09-06] MEDS: Aspirin 81 MG TAB.CHEW 324 MG PO (20:14)
--- NOTE | 2020-09-06 21:01 | HP.PCM_ITS ---
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 Her epigastric pain started after eating chili. She denies any ameliorating factors to the pain. Walking made the pain worse. Her pain radiated to her left arm. She describes her pain as a constant dullness. She is unable to burp. At the time of hospitalist examination her epigastric pain had significantly improved. For a couple of days she has had a cough. Initially her cough was productive for yellow sputum. Now her cough is dry. She has had subjective fevers. She has had some shortness of breath. She denies any loss of taste or loss of smell. She denies any contact with anyone with a known COVID-19 virus. She was recently diagnosed with bronchitis. At emergency department her rapid Covid antigen test was negative. Past Medical History Past Medical History (Chronic Problems): Chronic Problems (Last Reviewed 09/06/20 @ 21:[address] Vadim Flanagan MD) Hyperparathyroidism (Chronic) Thyroid cancer, medullary carcinoma (Chronic) DLBCL (diffuse large B cell lymphoma) (Chronic) Weight loss (Chronic) Medical History: Medical History (Last Reviewed 09/06/20 @ 21:[address] 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 History of thyroid cancer Z85.850 Hyperlipidemia E78.5 Non-Hodgkin lymphoma C85.90 Osteoarthritis M19.90 Hypertension I10 Allergies No Known Allergies Allergy (Verified 09/06/20 19:32) Home Medications: Ambulatory Orders Medication Instructions Recorded Escitalopram Oxalate [Lexapro] 20 mg PO DAILY 10/01/13 Omeprazole [Prilosec] 40 mg PO DAILY 10/01/13 Simvastatin [Zocor] 40 mg PO QHS 10/01/13 hydroCHLOROthiazide 12.5 mg PO QODAY 08/06/16 [Hydrochlorothiazide] Levothyroxine Sodium [Synthroid] 100 mcg PO MOTUWETHFRSA 09/06/20 Multivitamins,Therapeutic 1 tab PO DAILY 09/06/20 [Multivitamin] Surgical History: Surgical History (Last Reviewed 09/06/20 @ 21:[address] Vadim Flanagan MD) History of appendectomy Z98.890, Z90.49 History of cholecystectomy Z98.890, Z90.49 History of partial thyroidectomy Z98.890, E89.0 History of tubal ligation Z98.51 S/P dilation and curettage Z98.890 Smoking Status: Never smoker - *Family History Maternal Family History: Family History (Last Reviewed 09/06/20 @ 21:[address] Vadim Flanagan MD) Mother Heart disease Daughter Breast cancer Review of Systems Constitutional: Reports: Fever - Subjective, Malaise, Weakness. Denies: Chills, Weight Change HEENT: Denies: Head Aches, Sinus Congestion, Sinus Drainage Cardiovascular: Reports: Chest Pain. Denies: Palpitations Respiratory: Reports: Cough, Shortness of Breath Gastrointestinal: Denies: Nausea, Vomiting Genitourinary: Denies: Dysuria Musculoskeletal: Denies: Joint Pain, Joint Tenderness Skin: Denies: Rash, Wounds Neurological: Denies: Numbness, Tingling, Focal weakness Psychiatric: Denies: Anxiety, Depression, Homicidal Ideations, Suicidal Ideations Hematologic/ Lymphatic: Denies: Easy Bruising, Easy Bleeding VTE Information - Inpt Only VTE Present on Admission: No VTE Mechan Device Prophylaxis: SCD's, None VTE Pharm Prophylaxis ordered?: No Patient Problems: Active and Suspected Problems (Last Reviewed 09/06/20 @ 21:[address] Vadim Flanagan MD) Chest pain (Acute) - Physical Exam Vitals/I&O's: Vital Signs Temp Pulse Resp BP Pulse Ox 98.3 F 94 16 137/71 H 96 09/06/20 20:21 09/06/20 20:21 09/06/20 20:21 09/06/20 20:21 09/06/20 20:21 Oxygen Delivery Method Room Air Weight: 85.3 kg Body Mass Index (BMI) 30.3 General: Alert, Oriented x3, Cooperative HEENT: Atraumatic, PERRLA, EOMI, Normocephalic Neck: Supple, No JVD, Negative Carotid Bruits Lungs: Clear to auscultation, Normal air movement Cardiovascular: Regular rate, Regular Rhythm, Normal S1, Normal S2, No murmurs, - - Tender substernal area Abdomen: Bowel Sounds Present, Soft, Non Tender, - - Tender epigastric area Extremities: No edema, Capillary Refill Less than 3 Seconds Skin: No rashes, No breakdown Musculoskeletal: No Tenderness to Palpation of Joints or Extremities Neurological: Cranial nerves II-XII grossly intact Psych/Mental Status: Anxious Microbiology Past 72 Hours 09/06/20 19:50 Mucosa - Nose SARS-CoV-2 Antigen (Rapid) - Final Laboratory Results 09/06/20 19:32: WBC 6.8, RBC 3.82 L, Hgb 11.5 L, Hct 34.7 L, MCV 90.8, MCH 30.1, MCHC 33.1, RDW Std Deviation 41.4, RDW Coeff of Mandeep 12.5, Plt Count 235, MPV 9.6, Immature Gran % (Auto) 0.100, Neut % (Auto) 72.0 H, Lymph % (Auto) 20.6, [place] % (Auto) 5.9, Eos % (Auto) 1.0, Baso % (Auto) 0.4, Absolute Neuts (auto) 4.9, Absolute Lymphs (auto) 1.39, Nucleated RBC % 0 09/06/20 19:32: Sodium 138, Potassium 3.6, Chloride 105, Carbon Dioxide 27.0, Anion Gap 6, BUN 12, Creatinine 1.15 H, Estim Creat Clear Calc 34.70, Est GFR (MDRD) Af Amer 58 L, Est GFR (MDRD) Non-Af 48 L, BUN/Creatinine Ratio 10.4, Glucose 151 H, Calcium 9.4, Troponin I < 0.015 Current Medications Nitroglycerin (Nitroglycerin Sl (Ed/Img/Cath) 0.4 Mg Tablet) 0.4 mg SUBLINGUAL Q5M PRN PRN Reason: Chest pain Assessment/Plan All Active Problems (Last Reviewed 09/06/20 @ 21:[address] Vadim Flanagan MD) Chest pain (Acute) The patient is a 84 year old F with a significant history of GERD; hyperparathyroidism; thyroid cancer; diffuse large B-cell lymphoma; and hyperlipidemia who presents emergency department with excruciating epigastric pain that started after eating chili; and with pain radiating to her left arm and with tender substernal and epigastric area in the setting of recent bronchitis. Chest pain JAMA score 2 points for age more or equal to 65; and severe angina (more or equal to 2 episodes in 24 hours). Heart score 3 points; low risk (age more equal to 65; 1-2 risk factors) Chest x-ray does not look like Covid. Rapid antigen was negative. Her symptomatology is not classic for Covid. Different diagnoses include cardiac source of chest pain; costochondritis; per icarditis or GERD. Place on a monitored bed at PCU Actual CXR image was independently visualized. No acute cardiopulmonary process was noted. Actual EKG tracing was independently visualized. EKG tracing showed sinus tach with a rate of 103. Received aspirin 324 mg in emergency department. ASA 81 mg p.o. daily ordered SL NTG 0.4 mg prn as needed for chest pain ordered Morphine as needed for pain ordered We will check lipid panel. Initial troponin was negative. Serial cardiac enzymes ordered Stat EKG as needed for chest pain Chemical stress test in the AM if the cardiac enzymes are negative. Review of records showed Exercise stress test was done on 12/13/2015. Patient said that she is too weak to walk on a treadmill at this time. Hypokalemia Potassium is low normal. Replaced. Depression/anxiety Lisinopril continued Hypertension Blood pressure is now within goal Hydrochlorothiazide continued Trend blood pressure and adjust blood pressure medications as necessary. Hypothyroidism Synthroid continued GERD Prilosec continued Hyperlipidemia Zocor continued DVT prophylaxis SCD ordered OBSV E&M: [id number] Initial observation care L2
--- NOTE | 2020-09-06 21:43 | EKG12_ITS ---
Test Reason : AM EKG Blood Pressure : / mmHG Vent. Rate : 084 BPM Atrial Rate : 084 BPM P-R Int : 158 ms QRS Dur : 088 ms QT Int : 368 ms P-R-T Axes : 042 007 052 degrees QTc Int : 434 ms Normal sinus rhythm Normal ECG Confirmed by TALA CRAFWORD, KIT ([id number]), graphics editor SOTO SOSA ([id number]) on 09/14/2020 9:10:40 AM Referred By: EVAN Confirmed By:KIT EDGAR MD
--- NOTE | 2020-09-06 21:44 | PCS.PANDOC ---
PANDEMIC DOCUMENTATION INITIATED: Date: 09/06/2020 Time: 2143
[2020-09-06] MEDS: 0.9% Saline Lock 10 ML Syringe IV (22:11)
[2020-09-06] MEDS: Atorvastatin Calcium 20 MG Tablet PO (22:11)
[2020-09-07] VITALS (7 sets, daily range): BP systolic 133–163; BP diastolic 65–78; PULSE 90–130; RESP 18–26; TEMP 36.8–37.1; O2SAT 94–98
[2020-09-07] MEDS: Ondansetron 4 MG/2 ML Vial IV (00:13)
[2020-09-07] MEDS: 0.9% Saline Lock 10 ML Syringe IV ×2 (00:13→00:18)
[2020-09-07] MEDS: Morphine 2 MG/ML Syringe 1 MG IV (00:18)
--- NOTE | 2020-09-07 05:00 | EKG12_ITS ---
Test Reason : CP ADMIT Blood Pressure : / mmHG Vent. Rate : 083 BPM Atrial Rate : 083 BPM P-R Int : 144 ms QRS Dur : 074 ms QT Int : 362 ms P-R-T Axes : -07 -11 038 degrees QTc Int : 425 ms Normal sinus rhythm Normal ECG Confirmed by TALA CRAWFORD, KIT ([id number]), film or videotape editor SOTO SOSA ([id number]) on 09/14/2020 9:11:26 AM Referred By: DR VERDIN Confirmed By:KIT EDGAR MD
[2020-09-07] MEDS: Aspirin E.C. 81 MG Tablet PO (06:17)
[2020-09-07] MEDS: Levothyroxine 100 MCG Tablet PO (06:17)
[2020-09-07 06:44] LABS: Cholesterol 160 mg/dL (200); High Density Lipoprotein 69 mg/dL; Triglycerides 63 mg/dL; Very Low Density Lipoprotein 13 mg/dL (5-40)
[2020-09-07] MEDS: Escitalopram Oxalate 20 MG Tablet PO (09:49)
[2020-09-07] MEDS: Multivitamins,Therapeutic Tablet 1 TABLET PO (09:49)
[2020-09-07] MEDS: hydroCHLOROthiazide 12.5mg 12.5 MG PO (09:49)
[2020-09-07] MEDS: Pantoprazole Sodium 40 MG Tablet PO (09:51)
--- NOTE | 2020-09-07 13:57 | STRESSREP ---
Stress Test Report Date: [09/07/2020] Procedure: Pharmacologic stress nuclear imaging study Indications: Chest pain Consent: Per the patient Procedure: The patient underwent pharmacologic (Regadenoson) evaluation with a peak heart rate of 116 beats per minute (84%predicted maximal heart rate) and a peak blood pressure of 142/70 mmHg. The baseline ECG demonstrated normal sinus rhythm. EKG during lexiscan infusion revealed no significant ischemic changes. EKG post infusion revealed no significant ischemic changes [There were no cardiac dysrhythmias pretest, during pharmacologic infusion, or recovery]. Patient had mild chest heaviness after Lexiscan infusion which is likely a nonspecific response. The examination was discontinued secondary to completion of protocol. Impression: 1. Lexiscan stress test test is negative for Lexiscan infusion induced EKG changes of ischemia. 2. Lexiscan stress test test is positive for Lexiscan infusion induced chest heaviness which is likely a nonspecific response. 3. Results of the nuclear portion of the test is as below Myocardial perfusion imaging study: Technique: The patient was injected with 10.6 millicuries of technetium 99m Cardiolite and subsequently rest SPECT Cardiolite nuclear imaging was obtained in the horizontal long, vertical long, and short axis views. The patient underwent pharmacologic (Regadenoson) evaluation. Please see above for details. The patient was injected with 33.3 millicuries of technetium 99m Cardiolite and subsequently stress SPECT Cardiolite nuclear imaging was obtained in the horizontal long, vertical long, and short axis views. A gated Cardiolite study at peak stress was obtained. Interpretation: Rest and stress SPECT Cardiolite nuclear imaging status post realignment, normalization, and attenuation correction demonstrate normal myocardial radioisotope uptake. Gated images reveal no significant regional wall motion abnormalities. The reported LVEF is greater than 70%. Impression: 1. There is no evidence of significant ischemia or infarction. 2. Estimated ejection fraction is greater than 70%. This note was generated with PrecisionHawkation software. It may contain incorrect words, spelling, and punctuation that were not noted in checking the note before signing.
--- NOTE | 2020-09-07 14:29 | DCINST_ITS ---
- Discharge Diagnoses Current Active Problems: Current Active and Chronic Problems (Last Reviewed 09/06/20 @ 21:[address] Vadim Flanagan MD) Chest pain (Acute) Hyperparathyroidism (Chronic) Thyroid cancer, medullary carcinoma (Chronic) DLBCL (diffuse large B cell lymphoma) (Chronic) Weight loss (Chronic) You will use the following diet at home:: Cardiac Discharge Activity: Return to Normal Activity Call your doctor if you observe: Fever of 101 or Higher, Coldness, Increased Pain, Change in Color, Inability to urinate, Inability to have a bowel movement, Using more than one pad per hour, Shortness of breath, Dizziness, Fainting spells, Swelling in the ankles, Chest pain, Prolonged hiccoughing, Increased palpitations (irregular heartbeat), Calf discomfort, Uncontrolled pain Allergies/Adverse Reactions: Allergies No Known Allergies Allergy (Verified 09/06/20 19:32) Medications to take at Discharge Escitalopram Oxalate [Lexapro] 20 mg PO DAILY 10/01/13 Omeprazole [Prilosec] 40 mg PO DAILY 10/01/13 Simvastatin [Zocor] 40 mg PO QHS 10/01/13 hydroCHLOROthiazide [Hydrochlorothiazide] 12.5 mg PO QODAY 08/06/16 Levothyroxine Sodium [Synthroid] 100 mcg PO MOTUWETHFRSA 09/06/20 Multivitamins,Therapeutic [Multivitamin] 1 tab PO DAILY 09/06/20 Primary Care Physician: Jenna Najera REFRIGERATOR GLAZIER, REFRIGERATOR GLAZIER-C [Primary Care Provider] - Please follow up with your Primary Care Physician in: IN 2 WEEKS Test Results: Test results from this visit will be discussed in further detail at your follow- up appointment, if applicable. Please Follow Up With: Taras Vanegas MD When: IN 2-3 WEEKS FOR REPEAT EGD for esophageal stricture
--- NOTE | 2020-09-07 14:30 | DS.PCM_ITS ---
Discharge Date and Diagnosis - Problem List Patient Problems: Active and Suspected Problems (Last Reviewed 09/06/20 @ 21:[address] Vadim Flanagan MD) Chest pain (Acute) Date of Admission: 09/06/20 Date of Discharge: 09/07/20 - Primary Discharge Diagnosis Acute Problems: Active Problems (Last Reviewed 09/06/20 @ 21:[address] Vadim Flanagan MD) Chest pain (Acute). Acute coronary syndrome ruled out. - Secondary Discharge Diagnosis Chronic Problems: Chronic Problems (Last Reviewed 09/06/20 @ 21:[address] 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 She had recent bronchitis. JAMA score was 2. Rapid SARS-CoV-2 antigen negative. EKG shows sinus tachycardia at 103/min. Chest x-ray no acute cardiopulmonary abnormality. Patient had serial troponins which were negative. Fasting profile shows normal triglyceride and LDL. Patient further had a pharmacological nuclear stress test which was negative for stress-induced ischemia. Patient is on PPI. Patient follows Dr. Vanegas and advised to follow-up in 2 to 4 weeks. Patient other comorbidities hypertension, hypothyroidism, GERD, hyperlipidemia, hyperparathyroidism which are controlled. Discharge medication reconciliation done. Discharge follow-up instructions completed. Discharge process discussed with the patient and all questions were answered to patient's satisfaction. Total time spent, exact 35 minutes on discharge meds reconciliation, examination, coordination of care with nurses and ancillary staff, review of imaging and blood test and discussion with the patient on follow-up instructions [] Patient Problems: Active and Suspected Problems (Last Reviewed 09/06/20 @ 21:[address] Vadim Flanagan MD) Chest pain (Acute) Objective: Patient heart rate and blood pressure is controlled. Patient had mainly epigastric pain with radiation to chest and left arm. Patient has history of chronic esophageal stricture secondary to radiation and chemotherapy from NHL/diffuse large B-cell lymphoma. Patient had esophageal dilatation, last more 2 to 3 years ago. She also had thyroid cancer related carcinoma and had thyroidectomy. Physical exam General: Alert, Oriented x3, Cooperative HEENT: Atraumatic, PERRLA, EOMI, Normocephalic Oral: No Gingival or Mucosal Lesions/ Ulcerations Neck: Supple, No JVD, Negative Carotid Bruits Lungs: Air entry diminished in bilateral lung bases. No crepitation/rhonchi Cardiovascular: Regular rate, Regular Rhythm, Normal S1, Normal S2, No murmurs Abdomen: Bowel Sounds Present, Soft, Non Tender, Non-Distended : No renal angle tenderness. No suprapubic tenderness. Extremities: No edema, Capillary Refill Less than 3 Seconds Skin: No rashes, No breakdown Musculoskeletal: No Tenderness to Palpation of Joints or Extremities Neurological: Cranial nerves II-XII grossly intact, Deep Tendon Reflexes 2+/4 and Symmetrical, Neuro grossly intact Psych/Mental Status: Normal Affect, Appropriate. - Physical Exam Vitals/I&O's: Vital Signs Temp Pulse Resp BP Pulse Ox 98.6 F 108 H 20 H 133/65 H 98 09/07/20 09:52 09/07/20 09:52 09/07/20 09:52 09/07/20 09:52 09/07/20 09:52 Oxygen Delivery Method Room Air Weight: 180 lb 8.937 oz Body Mass Index (BMI) 30.9 Intake and Output for Last 24 Hours 09/05/20 09/06/20 09/07/20 23:59 23:59 23:59 Intake Total 520 / 520 Balance 520 / 520 Microbiology Past 72 Hours 09/06/20 19:50 Mucosa - Nose SARS-CoV-2 Antigen (Rapid) - Final Laboratory Results 09/06/20 19:32: WBC 6.8, RBC 3.82 L, Hgb 11.5 L, Hct 34.7 L, MCV 90.8, MCH 30.1, MCHC 33.1, RDW Std Deviation 41.4, RDW Coeff of Mandeep 12.5, Plt Count 235, MPV 9.6, Immature Gran % (Auto) 0.100, Neut % (Auto) 72.0 H, Lymph % (Auto) 20.6, [place] % (Auto) 5.9, Eos % (Auto) 1.0, Baso % (Auto) 0.4, Absolute Neuts (auto) 4.9, Absolute Lymphs (auto) 1.39, Nucleated RBC % 0 09/06/20 19:32: Sodium 138, Potassium 3.6, Chloride 105, Carbon Dioxide 27.0, Anion Gap 6, BUN 12, Creatinine 1.15 H, Estim Creat Clear Calc 34.70, Est GFR (MDRD) Af Amer 58 L, Est GFR (MDRD) Non-Af 48 L, BUN/Creatinine Ratio 10.4, Glucose 151 H, Calcium 9.4, Troponin I < 0.015 09/06/20 22:38: Troponin I < 0.015 09/07/20 01:10: Troponin I < 0.015 09/07/20 06:00: Triglycerides 63, Cholesterol 160, LDL Cholesterol 78, VLDL Cholesterol 13, HDL Cholesterol 69 Current Medications Acetaminophen (Acetaminophen 325 Mg Tablet) 650 mg PO Q6H PRN PRN PRN Reason: Pain Score 1-10/Temp > 100.7 F Aspirin (Aspirin E.C. 81 Mg Tablet) 81 mg PO DAILY@0800 [facility] Last Admin: 09/07/20 06:17 Dose: 81 mg Documented by: Atorvastatin Calcium (Atorvastatin Calcium 20 Mg Tablet) 20 mg PO QHS [facility] Last Admin: 09/06/20 22:11 Dose: 20 mg Documented by: Escitalopram Oxalate (Escitalopram Oxalate 20 Mg Tablet) 20 mg PO DAILY [facility] Last Admin: 09/07/20 09:49 Dose: 20 mg Documented by: Hydrochlorothiazide (Hydrochlorothiazide 12.5mg) 12.5 mg PO Q48H [facility] Last Admin: 09/07/20 09:49 Dose: 12.5 mg Documented by: Levothyroxine Sodium (Levothyroxine 100 Mcg Tablet) 100 mcg PO MoTuWeThFrSa@0600 [facility] Last Admin: 09/07/20 06:17 Dose: 100 mcg Documented by: Melatonin (Melatonin 3 Mg Tablet) 3 mg PO QHS PRN PRN PRN Reason: INSOMNIA Morphine Sulfate (Morphine 2 Mg/Ml Syringe) 1 mg IV Q4H PRN PRN PRN Reason: pain 6-10/10 Last Admin: 09/07/20 00:18 Dose: 1 mg Documented by: Multivitamins ([facility],Therapeutic Tablet) [facility] Last Admin: 09/07/20 09:49 Dose: 1 tablet Documented by: Nitroglycerin (Nitroglycerin (Inpatient Use) 0.4 Mg Tab.Subl) 0.4 mg SUBLINGUAL Q5M PRN PRN Reason: CHEST PAIN Ondansetron HCl (Ondansetron 4 Mg/2 Ml Vial) 4 mg IV Q8H PRN PRN PRN Reason: NAUSEA/VOMITING Last Admin: 09/07/20 00:13 Dose: 4 mg Documented by: Pantoprazole Sodium (Pantoprazole Sodium 40 Mg Tablet) 40 mg PO DAILY [facility] Last Admin: 09/07/20 09:51 Dose: 40 mg Documented by: Sodium Chloride (0.9% Saline Lock 10 Ml Syringe) 10 - 40 ml IV UD PRN PRN Reason: SALINE FLUSH Last Admin: 09/07/20 00:18 Dose: 10 ml Documented by: Discharge Activity: Return to Normal Activity Call your doctor if you observe: Fever of 101 or Higher, Coldness, Increased Pain, Change in Color, Inability to urinate, Inability to have a bowel movement, Using more than one pad per hour, Shortness of breath, Dizziness, Fainting spells, Swelling in the ankles, Chest pain, Prolonged hiccoughing, Increased palpitations (irregular heartbeat), Calf discomfort, Uncontrolled pain Home Medications: Medications to take at Discharge Escitalopram Oxalate [Lexapro] 20 mg PO DAILY 10/01/13 Omeprazole [Prilosec] 40 mg PO DAILY 10/01/13 Simvastatin [Zocor] 40 mg PO QHS 10/01/13 hydroCHLOROthiazide [Hydrochlorothiazide] 12.5 mg PO QODAY 08/06/16 Levothyroxine Sodium [Synthroid] 100 mcg PO [id number] 09/06/20 Multivitamins,Therapeutic [Multivitamin] 1 tab PO DAILY 09/06/20 Primary Care Physician: Jenna Najera NP, [facility] [Primary Care Provider] - Please follow up with your Primary Care Physician in: IN 2 WEEKS Please Follow Up With: Taras Vanegas MD When: IN 2-3 WEEKS FOR REPEAT EGD for esophageal stricture Medical Necessity - Tobacco Use Smoking Status: Never smoker Tobacco Use: Non-smoker Meaningful Use Info Meaningful Use Diagnoses (Choose all that apply): None applicable OBSV E&M: 52701 Observation care discharge
== END 2020-09-07 14:30 | disposition home or self-care (01) ==
LOC: ED 20:53 → PCU 21:12
PROVIDERS: Admitting Provider Hospitalist; Emergency Provider Emergency Medicine; PCP Nurse Practitioner; Visit Provider Internal Medicine
DX: R07.89 Other chest pain (principal); Z23 Encounter for immunization; R06.02 Shortness of breath; R42 Dizziness and giddiness; E21.3 Hyperparathyroidism, unspecified; K21.9 Gastro-esophageal reflux disease without esophagitis; E78.5 Hyperlipidemia, unspecified; N18.9 Chronic kidney disease, unspecified; I12.9 Hypertensive chronic kidney disease with stage 1 through stage 4 chronic kidney disease, or unspecified chronic kidney disease; M19.90 Unspecified osteoarthritis, unspecified site; E06.3 Autoimmune thyroiditis; F41.9 Anxiety disorder, unspecified; Z79.899 Other long term (current) drug therapy; Z85.850 Personal history of malignant neoplasm of thyroid; Z85.72 Personal history of non-Hodgkin lymphomas; E87.6 Hypokalemia
CPT/HCPCS: 36415; 71045; 78452; 80048; 80061; 84484; 85025; 87426; 93005; 93017; 96374; 96375; 99218; 99285; A9500; G0008; 90686; A4216; G0378; J2405; J2785

== ENCOUNTER → 2020-09-13 12:40 | Outpatient (CLI) | payer MEDICARE, MEDICAID, SELFPAY ==
[2020-09-06 21:43] VITALS: BMI 30.9
[2020-09-13 13:11] LABS: Anion Gap 3 (5-15); BUN 9 mg/dL (7-18); Calcium,Total 9.1 mg/dL (8.5-10.1); Chloride 106 mmol/L (98-107); EST Glomerular Filtration Rate 57 mL/min (>60); Est Glom Filt Rate - Afr Amer 68 mL/min (>60); Glucose 109 mg/dL (74-106); Potassium 4.6 mmol/L (3.5-5.1); Sodium Level 139 mmol/L (136-145)
== END ==
PROVIDERS: PCP Nurse Practitioner; Visit Provider Nurse Practitioner
DX: R11.2 Nausea with vomiting, unspecified (principal)
CPT/HCPCS: 80048

== ENCOUNTER → 2020-12-04 10:34 | Outpatient (CLI) | payer MEDICARE, MEDICAID, SELFPAY ==
[2020-09-06 21:43] VITALS: BMI 30.9
[2020-12-04 12:59] LABS: PTHIN 133.3 pg/mL (18.4-80.1)
[2020-12-04 13:01] LABS: AST(SGOT) 19 U/L (15-37); Alanine Aminotransfer ALT/SGPT 19 U/L (13-56); Albumin, Serum 3.3 g/dL (3.2-5.0); Alkaline Phosphatase 65 U/L (45-117); Anion Gap 4 (5-15); BUN 13 mg/dL (7-18); BUN/Creat Ratio 11.9 RATIO (10-20); Calcium,Total 9.4 mg/dL (8.5-10.1); Chloride 105 mmol/L (98-107); Creatinine, Serum 1.09 mg/dL (0.55-1.02); EST Glomerular Filtration Rate 51 mL/min (>60); Est Glom Filt Rate - Afr Amer 62 mL/min (>60); Globulin 3.2 g/dL (2.2-4.2); Glucose 98 mg/dL (74-106); Protein, Total 6.5 g/dL (6.4-8.2); Sodium Level 137 mmol/L (136-145); T4 Free Direct 1.55 ng/dL (0.76-1.46); Thyroid Stim Hormone (TSH) 0.05 uIU/mL (0.358-3.74)
== END ==
PROVIDERS: PCP Nurse Practitioner; Referring Provider Internal Medicine Endocrinology, Diabetes & Metabolism; Visit Provider Internal Medicine Endocrinology, Diabetes & Metabolism
DX: C73 Malignant neoplasm of thyroid gland (principal); E03.9 Hypothyroidism, unspecified; N18.30 Chronic kidney disease, stage 3 unspecified; E21.3 Hyperparathyroidism, unspecified
CPT/HCPCS: 36415; 80053; 82330; 83970; 84439; 84443

== ENCOUNTER → 2021-01-15 10:22 | Outpatient (CLI) | payer MEDICARE, MEDICAID, SELFPAY ==
[2020-09-06 21:43] VITALS: BMI 30.9
--- NOTE | 2021-01-15 10:23 | BI_ITS ---
MAMMOGRAPHY - BILATERAL SCREENING REASON FOR EXAM: Female, 85 years old. Routine annual screening examination. PERTINENT HISTORY: Daughter with breast cancer. Past history of lymphoma and thyroid cancer. TECHNIQUE: Digital bilateral breast janett (3D mammographic acquisition) in the CC and MLO projections. 2-D mediolateral oblique (MLO) and craniocaudad (CC) views of both breasts were obtained. CAD: Full Field Digital Mammography with Computer Added Detection was performed. COMPARISON: Comparison is made with prior examination 06/24/2016 and 01/03/2015. FINDINGS: Breast Composition: The breasts are almost entirely fatty. There are no dominant masses or suspicious calcifications. No other significant abnormalities are identified. There has been no significant change since the prior study. BI/SCRN MAMM (CAD)W/JANETT BILAT IMPRESSION: Stable bilateral screening mammogram. Yearly follow-up mammogram recommended. (A) ASSESSMENT CATEGORY: BIRADS Category 1: Negative. A letter regarding these results will be sent to the patient by the facility within 30 days. Approximately 10% of breast cancers are not detected by mammography. A normal mammogram should not delay biopsy of a clinically suspicious abnormality. [id number] Electronically Signed: Scott Mims MD at 13:04 EDT , Service support ,
== END ==
PROVIDERS: PCP Nurse Practitioner; Referring Provider Internal Medicine Hematology & Oncology; Visit Provider Internal Medicine Hematology & Oncology
DX: Z12.31 Encounter for screening mammogram for malignant neoplasm of breast (principal)
CPT/HCPCS: 77063; 77067

== ENCOUNTER → 2021-02-14 11:57 | Outpatient (CLI) | payer MEDICARE, MEDICAID, SELFPAY ==
[2020-09-06 21:43] VITALS: BMI 30.9
[2021-02-14 15:18] LABS: Free T3 1.7 pg/mL (2.18-3.98); T4 Free Direct 1.04 ng/dL (0.76-1.46); Thyroid Stim Hormone (TSH) 4.14 uIU/mL (0.358-3.74)
== END ==
PROVIDERS: PCP Nurse Practitioner; Referring Provider Internal Medicine Endocrinology, Diabetes & Metabolism; Visit Provider Internal Medicine Endocrinology, Diabetes & Metabolism
DX: C73 Malignant neoplasm of thyroid gland (principal); E31.22 Multiple endocrine neoplasia [MEN] type IIA; E21.3 Hyperparathyroidism, unspecified; N18.30 Chronic kidney disease, stage 3 unspecified; E03.9 Hypothyroidism, unspecified
CPT/HCPCS: 36415; 84439; 84443; 84481

== ENCOUNTER → 2021-08-27 09:34 | Outpatient (CLI) | payer MEDICARE, MEDICAID, SELFPAY ==
[2021-08-27 12:36] LABS: Vitamin D,25 Hydroxy 26.6 ng/mL
[2021-08-27 12:38] LABS: PTHIN 94.2 pg/mL (18.4-80.1)
[2021-08-27 13:31] LABS: ALB/GLOB Ratio 0.9 RATIO (0.9-2.4); AST(SGOT) 18 U/L (15-37); Alanine Aminotransfer ALT/SGPT 17 U/L (13-56); Albumin, Serum 3.2 g/dL (3.2-5.0); Alkaline Phosphatase 64 U/L (45-117); Anion Gap 8 (5-15); BUN 16 mg/dL (7-18); Calcium,Total 9.4 mg/dL (8.5-10.1); Chloride 104 mmol/L (98-107); Creatinine, Serum 1.14 mg/dL (0.55-1.02); EST Glomerular Filtration Rate 48 mL/min (>60); Est Glom Filt Rate - Afr Amer 58 mL/min (>60); Free T3 1.7 pg/mL (2.18-3.98); Globulin 3.6 g/dL (2.2-4.2); Glucose 94 mg/dL (74-106); Magnesium 2.3 mg/dL (1.6-2.6); Potassium 4.2 mmol/L (3.5-5.1); Protein, Total 6.8 g/dL (6.4-8.2); Sodium Level 139 mmol/L (136-145); Thyroid Stim Hormone (TSH) 5.05 uIU/mL (0.358-3.74)
== END ==
PROVIDERS: PCP Nurse Practitioner; Referring Provider Internal Medicine Endocrinology, Diabetes & Metabolism; Visit Provider Internal Medicine Endocrinology, Diabetes & Metabolism
DX: C73 Malignant neoplasm of thyroid gland (principal); E31.22 Multiple endocrine neoplasia [MEN] type IIA; E21.3 Hyperparathyroidism, unspecified; N18.30 Chronic kidney disease, stage 3 unspecified; E03.9 Hypothyroidism, unspecified
CPT/HCPCS: 36415; 80053; 82306; 82330; 83735; 83970; 84439; 84443; 84481

== ENCOUNTER → 2021-09-19 14:09 | Outpatient (CLI) | payer MEDICARE, MEDICAID, SELFPAY ==
--- NOTE | 2021-09-19 14:16 | US_ITS ---
STUDY: THYROID ULTRASOUND REASON FOR EXAM: Female, 85 years old. THY CA TECHNIQUE: Ultrasound evaluation of the thyroid was performed with real-time and static josue-scale imaging. COMPARISON: Comparison is made with prior study dated 08/22/2020. FINDINGS: RIGHT LOBE: The patient is status post resection of the right lobe of the thyroid. LEFT LOBE: The left lobe of the thyroid gland measures 4.3 cm x 1.4 cm x 1.7 cm. There is a heterogeneous echotexture. Stable appearance of the 3 small solid nodules in the left lobe of the thyroid. The largest measures 1 cm x 0.8 cm x 0.7 cm. Calcifications are seen within. This is essentially unchanged. ISTHMUS: The isthmus measures 2 mm. The regional lymph nodes are normal. US/Thyroid IMPRESSION: Status post resection of the right lobe of the thyroid. Stable appearance of the 3 solid nodules in the left lobe. Electronically Signed: Scott Mims MD at 13:02 EST , Service support ,
== END ==
PROVIDERS: PCP Nurse Practitioner; Referring Provider Internal Medicine Endocrinology, Diabetes & Metabolism; Visit Provider Internal Medicine Endocrinology, Diabetes & Metabolism
DX: C73 Malignant neoplasm of thyroid gland (principal); E21.3 Hyperparathyroidism, unspecified; E31.22 Multiple endocrine neoplasia [MEN] type IIA; E03.9 Hypothyroidism, unspecified; M85.80 Other specified disorders of bone density and structure, unspecified site
CPT/HCPCS: 76536

== ENCOUNTER 2021-10-23 15:04 | Outpatient (CLI) | payer MEDICARE, MEDICAID, SELFPAY ==
[2021-10-23 18:24] LABS: T4 Free Direct 1.18 ng/dL (0.76-1.46); Thyroid Stim Hormone (TSH) 1.83 uIU/mL (0.358-3.74)
== END 2021-10-23 23:59 | disposition short-term general hospital (02) ==
LOC: MTLAB 15:06
PROVIDERS: PCP Nurse Practitioner; Referring Provider Internal Medicine Endocrinology, Diabetes & Metabolism; Visit Provider Internal Medicine Endocrinology, Diabetes & Metabolism
DX: E03.9 Hypothyroidism, unspecified (principal)
CPT/HCPCS: 36415; 84439; 84443

== ENCOUNTER → 2022-01-16 | Outpatient (CLI) | payer MEDICARE, MEDICAID, SELFPAY ==
--- NOTE | 2022-01-16 10:31 | BI_ITS ---
MAMMOGRAPHY - BILATERAL SCREENING REASON FOR EXAM: Female, 86 years old. Routine annual screening examination. PERTINENT HISTORY: Daughter with breast cancer. History of remote treated lymphoma. TECHNIQUE: Digital bilateral breast janett (3D mammographic acquisition) in the CC and MLO projections. 2-D mediolateral oblique (MLO) and craniocaudad (CC) views of both breasts were obtained. CAD: Full Field Digital Mammography with Computer Added Detection was performed. COMPARISON: Comparison is made with prior study 01/15/2021 and 06/24/2016. FINDINGS: Breast Composition: There are scattered areas of fibroglandular density. There are no dominant masses or suspicious calcifications. No other significant abnormalities are identified. There has been no significant change since the prior study. BI/SCRN MAMM (CAD)W/JANETT BILAT IMPRESSION: Stable bilateral screening mammogram. Yearly follow-up mammogram recommended. (A) ASSESSMENT CATEGORY: BIRADS Category 1: Negative. A letter regarding these results will be sent to the patient by the facility within 30 days. Approximately 10% of breast cancers are not detected by mammography. A normal mammogram should not delay biopsy of a clinically suspicious abnormality. [id number] Electronically Signed: Scott Mims MD at 12:38 EDT ,
== END | disposition home or self-care (01) ==
LOC: OPBI 10:29
PROVIDERS: PCP Nurse Practitioner; Visit Provider Internal Medicine Hematology & Oncology
DX: Z12.31 Encounter for screening mammogram for malignant neoplasm of breast (principal)
CPT/HCPCS: 77063; 77067

== ENCOUNTER → 2022-02-12 | Outpatient (CLI) | payer MEDICARE, MEDICAID, SELFPAY ==
[2022-02-12 13:08] LABS: Vitamin D,25 Hydroxy 28.3 ng/mL
[2022-02-12 13:13] LABS: ALB/GLOB Ratio 1.1 RATIO (0.9-2.4); AST(SGOT) 17 U/L (15-37); Alanine Aminotransfer ALT/SGPT 14 U/L (13-56); Albumin, Serum 3.6 g/dL (3.2-5.0); Alkaline Phosphatase 60 U/L (45-117); Anion Gap 5 (5-15); BUN 14 mg/dL (7-18); BUN/Creat Ratio 13.3 RATIO (10-20); Calcium,Total 9.3 mg/dL (8.5-10.1); Chloride 106 mmol/L (98-107); Creatinine, Serum 1.05 mg/dL (0.55-1.02); EST Glomerular Filtration Rate 53 mL/min (>60); Est Glom Filt Rate - Afr Amer 64 mL/min (>60); Globulin 3.3 g/dL (2.2-4.2); Glucose 105 mg/dL (74-106); Protein, Total 6.9 g/dL (6.4-8.2); Sodium Level 139 mmol/L (136-145); T4 Free Direct 1.49 ng/dL (0.76-1.46); Thyroid Stim Hormone (TSH) 0.23 uIU/mL (0.358-3.74)
[2022-02-12 13:17] LABS: PTHIN 164.2 pg/mL (18.4-80.1)
== END | disposition home or self-care (01) ==
PROVIDERS: PCP Nurse Practitioner; Referring Provider Internal Medicine Endocrinology, Diabetes & Metabolism; Visit Provider Internal Medicine Endocrinology, Diabetes & Metabolism
DX: C73 Malignant neoplasm of thyroid gland (principal); E21.3 Hyperparathyroidism, unspecified; E03.9 Hypothyroidism, unspecified; E55.9 Vitamin D deficiency, unspecified
CPT/HCPCS: 36415; 80053; 82306; 82330; 83970; 84439; 84443

== ENCOUNTER → 2022-08-21 | Outpatient (CLI) | payer MEDICARE, MEDICAID, SELFPAY ==
[2022-08-21 15:35] LABS: Vitamin D,25 Hydroxy 26.1 ng/mL
[2022-08-21 15:41] LABS: Hemoglobin A1c 5.2 % (3.8-5.6)
[2022-08-21 15:51] LABS: ALB/GLOB Ratio 1.2 RATIO (0.9-2.4); AST(SGOT) 15 U/L (15-37); Alanine Aminotransfer ALT/SGPT 16 U/L (13-56); Albumin, Serum 3.5 g/dL (3.2-5.0); Alkaline Phosphatase 57 U/L (45-117); Anion Gap 4 (5-15); BUN 15 mg/dL (7-18); BUN/Creat Ratio 14.7 RATIO (10-20); Calcium,Total 9.6 mg/dL (8.5-10.1); Chloride 104 mmol/L (98-107); Creatinine, Serum 1.02 mg/dL (0.55-1.02); EST Glomerular Filtration Rate 55 mL/min (>60); Est Glom Filt Rate - Afr Amer 66 mL/min (>60); Glucose 155 mg/dL (74-106); Potassium 3.9 mmol/L (3.5-5.1); Protein, Total 6.5 g/dL (6.4-8.2); Sodium Level 139 mmol/L (136-145); T4 Free Direct 1.16 ng/dL (0.76-1.46); Thyroid Stim Hormone (TSH) 0.42 uIU/mL (0.358-3.74)
[2022-08-22 08:24] LABS: PTHIN 125.2 pg/mL (18.4-80.1)
== END | disposition home or self-care (01) ==
LOC: MTLAB 11:40
PROVIDERS: PCP Nurse Practitioner Family; Referring Provider Internal Medicine Endocrinology, Diabetes & Metabolism; Visit Provider Internal Medicine Endocrinology, Diabetes & Metabolism
DX: E21.3 Hyperparathyroidism, unspecified (principal); C73 Malignant neoplasm of thyroid gland; N18.30 Chronic kidney disease, stage 3 unspecified; E03.9 Hypothyroidism, unspecified; E55.9 Vitamin D deficiency, unspecified; Z79.899 Other long term (current) drug therapy
CPT/HCPCS: 36415; 80053; 82306; 82330; 83036; 83970; 84439; 84443

== ENCOUNTER → 2022-11-26 | Outpatient (CLI) | payer MEDICARE, MEDICAID, SELFPAY ==
[2022-11-26 15:37] LABS: Vitamin D,25 Hydroxy 18.8 ng/mL
[2022-11-26 15:49] LABS: AST(SGOT) 20 U/L (15-37); Alanine Aminotransfer ALT/SGPT 16 U/L (13-56); Albumin, Serum 3.5 g/dL (3.2-5.0); Alkaline Phosphatase 58 U/L (45-117); Anion Gap 6 (5-15); BUN 14 mg/dL (7-18); BUN/Creat Ratio 12.8 RATIO (10-20); Calcium,Total 9.4 mg/dL (8.5-10.1); Chloride 104 mmol/L (98-107); Creatinine, Serum 1.09 mg/dL (0.55-1.02); EST Glomerular Filtration Rate 51 mL/min (>60); Est Glom Filt Rate - Afr Amer 61 mL/min (>60); Globulin 3.5 g/dL (2.2-4.2); Glucose 95 mg/dL (74-106); Potassium 3.9 mmol/L (3.5-5.1); Sodium Level 138 mmol/L (136-145); T4 Free Direct 1.01 ng/dL (0.76-1.46); Thyroid Stim Hormone (TSH) 2.38 uIU/mL (0.358-3.74)
[2022-11-28 19:35] LABS: Anti-Thyroglobulin AB < 1.0 IU/mL (0.0-0.9)
== END | disposition home or self-care (01) ==
PROVIDERS: PCP Nurse Practitioner Family; Referring Provider Internal Medicine Endocrinology, Diabetes & Metabolism; Visit Provider Internal Medicine Endocrinology, Diabetes & Metabolism
DX: E21.3 Hyperparathyroidism, unspecified (principal); C73 Malignant neoplasm of thyroid gland; N18.30 Chronic kidney disease, stage 3 unspecified; E03.9 Hypothyroidism, unspecified; E55.9 Vitamin D deficiency, unspecified
CPT/HCPCS: 36415; 80053; 82306; 82330; 84432; 84439; 84443; 86800

== ENCOUNTER → 2023-01-17 | Outpatient (CLI) | payer MEDICARE, MEDICAID, SELFPAY ==
--- NOTE | 2023-01-17 10:12 | BI_ITS ---
MAMMOGRAPHY - BILATERAL SCREENING REASON FOR EXAM: Female, 87 years old. Routine annual screening examination. PERTINENT HISTORY: Daughters with breast cancer. TECHNIQUE: Digital bilateral breast janett (3D mammographic acquisition) in the CC and MLO projections. 2-D mediolateral oblique (MLO) and craniocaudad (CC) views of both breasts were obtained. CAD: Full Field Digital Mammography with Computer Added Detection was performed. COMPARISON: Comparison is made with prior study dated January 16, 2022 and January 15, 2021 FINDINGS: Breast Composition: There are scattered areas of fibroglandular density. There are no dominant masses or suspicious calcifications. No other significant abnormalities are identified. There has been no significant change since the prior study. BI/SCRN MAMM (CAD)W/JANETT BILAT IMPRESSION: Stable bilateral screening mammogram. Yearly follow-up mammogram recommended. (A) ASSESSMENT CATEGORY: BIRADS Category 1: Negative. A letter regarding these results will be sent to the patient by the facility within 30 days. Approximately 10% of breast cancers are not detected by mammography. A normal mammogram should not delay biopsy of a clinically suspicious abnormality. [id number] Electronically Signed: Scott Mims MD at 11:01 EDT ,
== END | disposition home or self-care (01) ==
PROVIDERS: PCP Nurse Practitioner Family; Referring Provider Internal Medicine Hematology & Oncology; Visit Provider Internal Medicine Hematology & Oncology
DX: Z12.31 Encounter for screening mammogram for malignant neoplasm of breast (principal)
CPT/HCPCS: 77063; 77067

== ENCOUNTER → 2023-04-30 | Outpatient (CLI) | payer MEDICARE, MEDICAID, SELFPAY ==
[2023-04-30 12:24] LABS: PTHIN 78.8 pg/mL (18.4-80.1)
[2023-04-30 12:29] LABS: Vitamin D,25 Hydroxy 82.2 ng/mL
[2023-04-30 12:39] LABS: AST(SGOT) 16 U/L (15-37); Alanine Aminotransfer ALT/SGPT 15 U/L (13-56); Albumin, Serum 3.2 g/dL (3.2-5.0); Alkaline Phosphatase 57 U/L (45-117); Anion Gap 6 (5-15); BUN 12 mg/dL (7-18); Calcium,Total 9.5 mg/dL (8.5-10.1); Chloride 105 mmol/L (98-107); Creatinine, Serum 1.09 mg/dL (0.55-1.02); EST Glomerular Filtration Rate 51 mL/min (>60); Est Glom Filt Rate - Afr Amer 61 mL/min (>60); Free T3 1.6 pg/mL (2.18-3.98); Globulin 3.2 g/dL (2.2-4.2); Glucose 99 mg/dL (74-106); Magnesium 2.2 mg/dL (1.6-2.6); Phosphorus 3.1 mg/dL (2.5-4.9); Potassium 4.1 mmol/L (3.5-5.1); Protein, Total 6.4 g/dL (6.4-8.2); Sodium Level 139 mmol/L (136-145); T4 Free Direct 1.03 ng/dL (0.76-1.46); Thyroid Stim Hormone (TSH) 2.52 uIU/mL (0.358-3.74)
[2023-04-30 17:51] LABS: Ionized Calcium Order ORDER TUBE
[2023-05-02 13:08] LABS: Vitamin D 1,25-Dihydroxy 57.1 pg/mL (24.8-81.5)
== END | disposition home or self-care (01) ==
PROVIDERS: PCP Nurse Practitioner Family; Referring Provider Internal Medicine Endocrinology, Diabetes & Metabolism; Visit Provider Internal Medicine Endocrinology, Diabetes & Metabolism
DX: E21.3 Hyperparathyroidism, unspecified (principal); C73 Malignant neoplasm of thyroid gland; N18.30 Chronic kidney disease, stage 3 unspecified; E03.9 Hypothyroidism, unspecified; E55.9 Vitamin D deficiency, unspecified
CPT/HCPCS: 36415; 80053; 82306; 82330; 82652; 83735; 83970; 84100; 84439; 84443; 84481

== ENCOUNTER → 2023-07-29 | Outpatient (CLI) | payer MEDICARE, MEDICAID, SELFPAY ==
[2023-07-29 10:45] LABS: Cholesterol 156 mg/dL (200); High Density Lipoprotein 77 mg/dL; Thyroid Stim Hormone (TSH) 5.58 uIU/mL (0.358-3.74); Triglycerides 72 mg/dL; Very Low Density Lipoprotein 14 mg/dL (5-40)
== END | disposition home or self-care (01) ==
LOC: MTLAB 09:04
PROVIDERS: PCP Nurse Practitioner Family; Referring Provider Nurse Practitioner Family; Visit Provider Nurse Practitioner Family
DX: E78.00 Pure hypercholesterolemia, unspecified (principal); E03.9 Hypothyroidism, unspecified
CPT/HCPCS: 36415; 80061; 84443

== ENCOUNTER → 2023-10-28 | Outpatient (CLI) | payer MEDICARE, MEDICAID, SELFPAY ==
[2023-10-28 12:25] LABS: Ionized Calcium 5.17 mg/dL (4.36-5.20)
[2023-10-28 12:28] LABS: Vitamin D,25 Hydroxy 43.2 ng/mL
[2023-10-28 12:31] LABS: PTHIN 132.7 pg/mL (18.4-80.1)
[2023-10-28 13:09] LABS: ALB/GLOB Ratio 1.1 RATIO (0.9-2.4); AST(SGOT) 14 U/L (15-37); Alanine Aminotransfer ALT/SGPT 15 U/L (13-56); Albumin, Serum 3.4 g/dL (3.2-5.0); Alkaline Phosphatase 59 U/L (45-117); Anion Gap 3 (5-15); BUN 14 mg/dL (7-18); BUN/Creat Ratio 13.9 RATIO (10-20); Calcium,Total 9.5 mg/dL (8.5-10.1); Chloride 107 mmol/L (98-107); Creatinine, Serum 1.01 mg/dL (0.55-1.02); EST Glomerular Filtration Rate 55 mL/min (>60); Est Glom Filt Rate - Afr Amer 67 mL/min (>60); Globulin 3.2 g/dL (2.2-4.2); Glucose 105 mg/dL (74-106); Potassium 4.1 mmol/L (3.5-5.1); Protein, Total 6.6 g/dL (6.4-8.2); Sodium Level 136 mmol/L (136-145); T4 Free Direct 1.06 ng/dL (0.76-1.46); Thyroid Stim Hormone (TSH) 2.26 uIU/mL (0.358-3.74)
== END | disposition home or self-care (01) ==
PROVIDERS: PCP Nurse Practitioner Family; Referring Provider Internal Medicine Endocrinology, Diabetes & Metabolism; Visit Provider Internal Medicine Endocrinology, Diabetes & Metabolism
DX: E21.3 Hyperparathyroidism, unspecified (principal); C73 Malignant neoplasm of thyroid gland; N18.30 Chronic kidney disease, stage 3 unspecified; E03.9 Hypothyroidism, unspecified; E55.9 Vitamin D deficiency, unspecified
CPT/HCPCS: 36415; 80053; 82306; 82330; 83970; 84439; 84443

== ENCOUNTER → 2023-12-02 | Outpatient (CLI) | payer MEDICARE, MEDICAID, SELFPAY ==
--- NOTE | 2023-12-02 09:00 | BD_ITS ---
STUDY: DUAL ENERGY X-RAY ABSORPTIOMETRY / DXA REASON FOR EXAM: Female, 87 years old. E21.3 TECHNIQUE: Bone Mineral Density (BMD) measurements of lumbar spine and bilateral hips were obtained. COMPARISON: Comparison is made with prior study dated December 30, 2013. FINDINGS: Lumbar Spine (L1-L4): g/cm2 (0.779) / T-score (-2.7) / Z-score (0.2) Findings are suggestive of osteoporosis with a high fracture risk. Left Femur Total: g/cm2 (0.581) / T-score (-3.0) / Z-score (-0.6) Left Femoral Neck: g/cm2 (0.482) / T-score (-3.3) / Z-score (-0.8) Right Femur Total: g/cm2 (0.583) / T-score (-2.9) / Z-score (-0.6) Right Femoral Neck: g/cm2 (0.527) / T-score (-2.9) / Z-score (-0.4) The T-Scores on the most recent prior examination were: Lumbar Spine (L1-L4): There has been worsening of bone density since the previous examination. Left Femur Total: which represents a worsening of 22.8. Right Femur Total: which represents a worsening of 23.6%. BD/Dexa Bone Density Study IMPRESSION: The patient is considered osteoporotic as outlined below according to World Benjamin Organization (WHO) criteria with a high fracture risk. There has been worsening of bone density since the previous examination. Reference Information: The T-score is the number of standard deviations above or below the standard which is normal for young adults at their peak bone mineral density. The World Health Organization (WHO) interprets the T-scores as follows: Above -1 Normal bone density Between -1 and -2.5 Osteopenia Equal to / or below -2.5 Osteoporosis As a practical clinical guideline, osteopenia may be graded as follows: Mild -1 through -1.5 Moderate -1.6 through -2.0 Severe -2.1 through -2.4 The Z-score is the number of standard deviations above or below age-matched controls. A Z-score of less than -1.5 would be considered abnormal. References: 1. NIH Osteoporosis and Related Bone Diseases www osteo.org 2. International Society for Clinical Densitometry www iscd.org 3. National Osteoporosis Foundation www nof.org Electronically Signed: Scott Mims MD at 15:37 EDT ,
== END | disposition home or self-care (01) ==
LOC: OPBD 08:52
PROVIDERS: PCP Nurse Practitioner Family; Visit Provider Internal Medicine Endocrinology, Diabetes & Metabolism
DX: E21.3 Hyperparathyroidism, unspecified (principal)
CPT/HCPCS: 77080

== ENCOUNTER → 2024-02-19 | Outpatient (CLI) | payer MEDICARE, MEDICAID, SELFPAY ==
--- NOTE | 2024-02-19 09:19 | BI_ITS ---
MAMMOGRAPHY - BILATERAL SCREENING REASON FOR EXAM: Female, 88 years old. Routine annual screening examination. PERTINENT HISTORY: Daughters with breast cancer. TECHNIQUE: Digital bilateral breast janett (3D mammographic acquisition) in the CC and MLO projections. 2-D mediolateral oblique (MLO) and craniocaudad (CC) views of both breasts were obtained. CAD: Full Field Digital Mammography with Computer Added Detection was performed. COMPARISON: Comparison is made with prior study dated January 17, 2023 and January 16, 2022. FINDINGS: Breast Composition: There are scattered areas of fibroglandular density. There are no dominant masses or suspicious calcifications. No other significant abnormalities are identified. There has been no significant change since the prior study. BI/SCRN MAMM (CAD)W/JANETT BILAT IMPRESSION: Stable bilateral screening mammogram. Yearly follow-up mammogram recommended. (A) ASSESSMENT CATEGORY: BIRADS Category 1: Negative. A letter regarding these results will be sent to the patient by the facility within 30 days. Approximately 10% of breast cancers are not detected by mammography. A normal mammogram should not delay biopsy of a clinically suspicious abnormality. [id number] Electronically Signed: Scott Mims MD at 11:15 EDT ,
== END | disposition home or self-care (01) ==
LOC: OPBI 09:19
PROVIDERS: PCP Nurse Practitioner Family; Referring Provider Internal Medicine Hematology & Oncology; Visit Provider Internal Medicine Hematology & Oncology
DX: Z12.31 Encounter for screening mammogram for malignant neoplasm of breast (principal)
CPT/HCPCS: 77063; 77067

== ENCOUNTER → 2024-06-07 | Outpatient (CLI) | payer MEDICARE, MEDICAID, SELFPAY ==
[2024-06-07 12:36] LABS: Hemoglobin 10.7 g/dL (12.0-15.0); Mean Corp Hgb Conc 31.5 g/dL (32-36); Mean Corpuscular Hgb 30.3 pg (27.0-32.0); Mean Corpuscular Volume 96.3 fL (81-99); Mean Platelet Vol. 10.3 fl (6.2-12.0); Platelet Count 185 K/mm3 (150-450); RBC Distribution Width CV 12.7 % (11.6-14.6); RBC Distribution Width SD 45.1 fl (35.1-43.9); Red Blood Count 3.53 M/mm3 (4.2-5.4); White Blood Count 4.7 K/mm3 (4.4-11.0)
[2024-06-07 13:02] LABS: Vitamin D,25 Hydroxy 39.7 ng/mL
[2024-06-07 13:03] LABS: PTHIN 194.6 pg/mL (18.4-80.1)
[2024-06-07 13:06] LABS: Calcium, Urine (Random) 5.1 mg/dL (Not Estab.)
[2024-06-07 13:11] LABS: Microalbumin,Random Urine 64.7 mg/L (NO RANGE EST.); Microalbumin:Creatinine Ratio 50.2 mg/g CRE (<30 mg/g CRE)
[2024-06-07 13:56] LABS: ALB/GLOB Ratio 1.1 RATIO (0.9-2.4); AST(SGOT) 13 U/L (15-37); Alanine Aminotransfer ALT/SGPT 11 U/L (13-56); Albumin, Serum 3.3 g/dL (3.2-5.0); Alkaline Phosphatase 36 U/L (45-117); Anion Gap 5 (5-15); BUN 13 mg/dL (7-18); Calcium,Total 9.7 mg/dL (8.5-10.1); Chloride 107 mmol/L (98-107); Creatinine, Serum 1.18 mg/dL (0.55-1.02); EST Glomerular Filtration Rate 46 mL/min (>60); Est Glom Filt Rate - Afr Amer 56 mL/min (>60); Globulin 3.1 g/dL (2.2-4.2); Glucose 102 mg/dL (74-106); Phosphorus 3.1 mg/dL (2.5-4.9); Potassium 4.6 mmol/L (3.5-5.1); Protein, Total 6.4 g/dL (6.4-8.2); Sodium Level 139 mmol/L (136-145); T4 Free Direct 1.08 ng/dL (0.76-1.46)
[2024-06-09 18:08] LABS: Creatinine, Urine 111.2 mg/dL (Not Estab.); N-Telopeptide, Urine 305 nmol BCE (Not Estab.); NTX:Creatinine Ratio, Urine 31 (0-89)
== END | disposition home or self-care (01) ==
PROVIDERS: PCP Nurse Practitioner Family; Referring Provider Internal Medicine Endocrinology, Diabetes & Metabolism; Visit Provider Internal Medicine Endocrinology, Diabetes & Metabolism
DX: E21.3 Hyperparathyroidism, unspecified (principal); E31.22 Multiple endocrine neoplasia [MEN] type IIA; C73 Malignant neoplasm of thyroid gland; N18.30 Chronic kidney disease, stage 3 unspecified; E03.9 Hypothyroidism, unspecified
CPT/HCPCS: 36415; 80053; 82043; 82306; 82340; 82523; 82570; 83970; 84100; 84439; 84443; 85027

== ENCOUNTER → 2024-06-08 | Outpatient (CLI) | payer MEDICARE, MEDICAID, SELFPAY ==
[2024-06-08 16:14] LABS: Ionized Calcium Order ORDER TUBE
== END | disposition home or self-care (01) ==
PROVIDERS: PCP Nurse Practitioner Family; Referring Provider Internal Medicine Endocrinology, Diabetes & Metabolism; Visit Provider Internal Medicine Endocrinology, Diabetes & Metabolism
DX: E21.3 Hyperparathyroidism, unspecified (principal); E31.22 Multiple endocrine neoplasia [MEN] type IIA; C73 Malignant neoplasm of thyroid gland; N18.30 Chronic kidney disease, stage 3 unspecified; E03.9 Hypothyroidism, unspecified
CPT/HCPCS: 82330

== ENCOUNTER → 2024-06-23 | Outpatient (CLI) | payer MEDICARE, MEDICAID, SELFPAY | END | disposition home or self-care (01) | PROVIDERS: PCP Nurse Practitioner Family; Referring Provider Internal Medicine Endocrinology, Diabetes & Metabolism; Visit Provider Internal Medicine Endocrinology, Diabetes & Metabolism | DX: E21.3 Hyperparathyroidism, unspecified (principal); C73 Malignant neoplasm of thyroid gland; N18.30 Chronic kidney disease, stage 3 unspecified; M81.0 Age-related osteoporosis without current pathological fracture; E03.9 Hypothyroidism, unspecified | CPT/HCPCS: 36415 ==

== ENCOUNTER → 2024-12-02 | Outpatient (CLI) | payer MEDICARE, MEDICAID, SELFPAY ==
[2024-12-02 11:04] LABS: Ionized Calcium Order ORDER TUBE
[2024-12-02 13:26] LABS: ALB/GLOB Ratio 1.5 RATIO (0.9-2.4); AST(SGOT) 17 U/L (<=31); Alanine Aminotransfer ALT/SGPT 9 U/L (<=34); Albumin, Serum 3.8 g/dL (3.4-4.8); Alkaline Phosphatase 51 U/L (35-104); Anion Gap 8 (5-15); BUN 16 mg/dL (4-19); BUN/Creat Ratio 16.5 RATIO (10-20); Calcium,Total 9.3 mg/dL (7.6-11.0); Carbon Dioxide 24.9 mmol/L (21.0-32.0); Chloride 109 mmol/L (98-108); Creatinine, Serum 0.97 mg/dL (0.70-1.20); EST Glomerular Filtration Rate 56 (>60); Globulin 2.5 g/dL (2.2-4.2); Glucose 95 mg/dL (70-99); Protein, Total 6.3 g/dL (5.9-8.4); Sodium Level 143 mmol/L (133-145); Total Bilirubin 0.34 mg/dL (0.00-1.30)
[2024-12-02 13:28] LABS: Vitamin D,25 Hydroxy 31.6 ng/mL (30-100)
[2024-12-02 13:57] LABS: Ionized Calcium 1.33 mmol/L (1.09-1.30); PTHIN 123 pg/mL (11-61)
== END | disposition home or self-care (01) ==
LOC: MTLAB 10:00
PROVIDERS: PCP Nurse Practitioner Family; Referring Provider Internal Medicine Endocrinology, Diabetes & Metabolism; Visit Provider Internal Medicine Endocrinology, Diabetes & Metabolism
DX: E21.3 Hyperparathyroidism, unspecified (principal); C73 Malignant neoplasm of thyroid gland; N18.30 Chronic kidney disease, stage 3 unspecified; M81.0 Age-related osteoporosis without current pathological fracture; E03.9 Hypothyroidism, unspecified
CPT/HCPCS: 36415; 80053; 82306; 82330; 83970; 84439; 84443; 84481

== ENCOUNTER 2025-02-21 10:09 | Outpatient (CLI) | payer MEDICARE, MEDICAID, SELFPAY ==
--- NOTE | 2025-02-21 10:30 | BI_ITS ---
EXAM: SCRN MAMM (CAD)W/JANETT BILAT DATE: 02/21/2025 CLINICAL HISTORY: F, Age 89 y/o , SCREENING BREAST CANCER RISK ASSESSMENT: Has not been calculated. TECHNIQUE: Bilateral screening digital breast tomosynthesis with 2D and 3D images. Computer aided detection. COMPARISON: Prior exam(s) dated 02/19/2024 and 01/17/2023. FINDINGS: TISSUE DENSITY: The breast tissue is heterogenously dense, which may obscure small masses. Bilateral Breast Mammographic Findings: No suspicious masses, suspicious cluster of microcalcifications, architectural distortion or secondary signs of malignancy is identified in either breast. Benign vascular calcifications and round calcifications are seen in both breasts. BI/SCRN MAMM (CAD)W/JANETT BILAT IMPRESSION: OVERALL FINAL ASSESSMENT: BIRADS 2 BENIGN FINDING RECOMMENDATION: Routine annual follow-up in 1 Year A letter with findings and recommendations will be mailed to the patient. Reading Location: [id number]
== END 2025-02-21 23:59 | disposition home or self-care (01) ==
PROVIDERS: PCP Nurse Practitioner Family; Referring Provider Internal Medicine Hematology & Oncology; Visit Provider Internal Medicine Hematology & Oncology
DX: Z12.31 Encounter for screening mammogram for malignant neoplasm of breast (principal); C83.31 Diffuse large B-cell lymphoma, lymph nodes of head, face, and neck; C73 Malignant neoplasm of thyroid gland; D64.9 Anemia, unspecified; E21.3 Hyperparathyroidism, unspecified
CPT/HCPCS: 36415; 77063; 77067; 80053; 82378; 82728; 83540; 83550; 83615; 85025